=== PATIENT | female | born 1975 | race Caucasian/White ===

== ENCOUNTER 2019-07-13 10:20 | Emergency (ER) | payer OTHER, SELFPAY ==
[2019-07-13 10:24] VITALS: BP 109/58; PULSE 74; RESP 18; TEMP 36.6; O2SAT 100
--- NOTE | 2019-07-13 10:57 | ED.BACK ---
HPI - Back Pain/Injury General Chief Complaint: Back Pain/Injury <Denis Bowling PA-C - Last Filed: 07/13/19 11:06> Stated Complaint: my back is out again <Denis Bowling PA-C - Last Filed: 07/13/19 11:06> Time Seen by Provider: 07/13/19 10:27 <Denis Bowling PA-C - Last Filed: 07/13/19 11:06> Source: patient <Denis Bowling PA-C - Last Filed: 07/13/19 11:06> Mode of arrival: ambulatory <Denis Bowling PA-C - Last Filed: 07/13/19 11:06> Limitations: no limitations <TRISTIN Avelar Last Filed: 07/13/19 11:06> History of Present Illness HPI Narrative: Patient is a 44-year-old female who presents with left lower back pain noting history of chronic low back pain for the last several days worse with activity and movement denies injury or trauma patient has tried [id number] medications with minimal improvement. . Patient notes over the last several days she has had a sore throat is currently being treated for this but denies any cough shortness of breath urinary symptoms or bowel habit changes. Pain radiates into the groin and lower extremities <Denis Bowling PA-C - Last Filed: 07/13/19 11:06> Related Data Allergies/Adverse Reactions: Allergies Allergy/AdvReac Type Severity Reaction Status Date / Time prochlorperazine Allergy Unknown Cramping Verified 07/13/19 11:13 of the Muscles <Denis Bowling PA-C - Last Filed: 07/13/19 11:06> Review of Systems Review of Systems: All systems reviewed & are unremarkable except as noted in HPI and below <Denis Bowling PA-C - Last Filed: 07/13/19 11:06> [facility] Surgical History Surgical History: Surgical History (Updated 07/13/19 @ 11:02 by Denis Bowling PA-C) History of orthopedic surgery <Denis Bowling PA-C - Last Filed: 07/13/19 11:06> Family History Family History: Family History (Updated 11/04/15 @ 23:19 by DOCTOR UNKNOWN) Father Family history of diabetes mellitus in first degree relative Grandparent Family history of malignant neoplasm of cervix Family history of primary malignant neoplasm of liver Family history of heart disease in male family member before age 55 <Denis Bowling PA-C - Last Filed: 07/13/19 11:06> Social History Social History: Social History Smoking status: Heavy tobacco smoker Alcohol intake: never Gender identity (if verbalized by the patient): Female <Denis Bowling PA-C - Last Filed: 07/13/19 11:06> Exam Narrative: Exam Narrative: GENERAL: Well-appearing, well-nourished, and in no acute distress. HEAD: Normocephalic, atraumatic. EYES: PERRLA and EOMI. ENT: Nares clear, no rhinorrhea or epistaxis. Mucous membranes moist. CHEST: Clear to auscultation. No respiratory distress. No wheezes rales or rhonchi HEART: Regular rate and rhythm. No murmur heard. Normal peripheral pulses. ABDOMEN: Soft, nontender, nondistended EXTREMITIES: Normal range of motion. No edema. Tenderness in the left lower lumbar region no deformity noted SKIN: Warm, dry, no rash. NEURO: No focal deficits. Alert and oriented x3. Cranial nerves II through XII grossly intact. Normal speech and gait PSYCH: Normal mood and affect. <Denis Bowling PA-C - Last Filed: 07/13/19 11:06> Course Course Emergency Course: Patient in the room in no distress aware of case findings treatment plan and diagnosis <Denis Bowling PA-C - Last Filed: 07/13/19 11:06> Vital Signs Vital signs: Vital Signs Temperature 97.9 F 07/13/19 10:24 Pulse Rate 74 07/13/19 10:24 Respiratory Rate 18 07/13/19 10:24 Blood Pressure 109/58 L 07/13/19 10:24 Pulse Oximetry 100 07/13/19 10:24 Temperature 97.9 F 07/13/19 10:24 Pulse Rate 61 07/13/19 11:38 Respiratory Rate 17 07/13/19 11:38 Blood Pressure 105/63 07/13/19 11:38 Pulse Oximetry 100 07/13/19 11:38 <
[2019-07-13 11:25] LABS: Add Urine Microscopic? YES; Appearance Urine Clear (Clear); Bacteria Urine Trace /hpf; Bilirubin Urine Negative (Negative); Blood Urine Negative (Negative); Color Urine Yellow (Yellow); Glucose Urine UA 1+ mg/dL (Negative); Ketones Urine Trace mg/dL (Negative); Leukocyte Esterase Ur Trace LEU/UL (Negative); Mucus Urine Rare /lpf; Nitrate Urine Negative (Negative); Protein Urine 1+ mg/dL (Negative); Specific Grav Ur 1.028 (1.001-1.035); Squamous Epithelial Cell Urine Occasional /hpf (Few); WBC Urine 0-3 /hpf
[2019-07-13 11:36] VITALS: BP 105/63; PULSE 61; RESP 17; O2SAT 100
[2019-07-13 11:38] VITALS: BP 105/63; PULSE 61; RESP 17; O2SAT 100
== END 2019-07-13 11:40 | disposition home or self-care (01) ==
PROVIDERS: Emergency Medicine Emergency Medical Services; Emergency Provider General Practice
DX: M54.5 Low back pain (principal); F17.200 Nicotine dependence, unspecified, uncomplicated
CPT/HCPCS: 51701; 81001; 99283

== ENCOUNTER 2019-12-07 11:51 | Emergency (ER) | payer OTHER, SELFPAY ==
[2019-12-07 11:58] VITALS: BP 103/57; PULSE 71; RESP 16; TEMP 37.1; O2SAT 98
--- NOTE | 2019-12-07 12:42 | ED.URI ---
HPI - URI/Sore Throat General Chief Complaint: Upper Respiratory Infection Stated Complaint: sinus congestion Time Seen by Provider: 12/07/19 12:18 Source: patient and RN notes reviewed Mode of arrival: ambulatory Limitations: no limitations History of Present Illness HPI Narrative: Patient presents today with a one-week history of nasal congestion that is worse in the mornings, nasal drainage, postnasal drip, sore throat due to drainage. Denies headache, cough, fever, shortness of breath. She has been using [id number] decongestant nasal drops for 3-4 days and has had 1 dose of Claritin. She has been using the nasal drops more frequently than directed because she didn't think they were penetrating the mucus in the nose. She also reports a possible stye developing in her left lower eyelid.She is a smoker. MD elicited complaint: nasal congestion Related Data Allergies Allergy/AdvReac Type Severity Reaction Status Date / Time prochlorperazine Allergy Unknown Cramping Verified 12/07/19 11:59 of the Muscles Review of Systems Review of Systems: Narrative: CONSTITUTIONAL: Denies body aches, fever, chills, or sweats. EYES: Denies visual changes, redness, or discharge. + Left lower eyelid pain ENT: Denies otalgia. +Congestion, rhinorrhea, postnasal drip, sore throat CARDIOVASCULAR: Denies chest pain, palpitations, or edema. RESPIRATORY: Denies cough or dyspnea. GASTROINTESTINAL: Denies abdominal pain, nausea, vomiting, or diarrhea. GENITOURINARY: Denies dysuria or hematuria. SKIN: Denies rash, itching, or wounds. MUSCULOSKELETAL: Denies back pain, joint pain, or myalgia. NEUROLOGIC: Denies headache, numbness, tingling, or weakness. PSYCH: Denies depression or anxiety. [facility] Past Medical History Medical History (Updated 12/07/19 @ 13:45 by Serena Alston, NURSE RESEARCHER, ) Anxiety Depression Surgical History Surgical History (Updated 07/13/19 @ 11:02 by Denis Bowling PA-C) History of orthopedic surgery Family History Family History (Updated 11/04/15 @ 23:19 by DOCTOR UNKNOWN) Father Family history of diabetes mellitus in first degree relative Grandparent Family history of malignant neoplasm of cervix Family history of primary malignant neoplasm of liver Family history of heart disease in male family member before age 55 Social History Social History Smoking status: Heavy tobacco smoker Alcohol intake: never Gender identity (if verbalized by the patient): Female Exam Narrative: Exam Narrative: GENERAL: Well-appearing, well-nourished, and in no acute distress. HEAD: Normocephalic, atraumatic. EYES: EOMI. PERRL. No redness or drainage. Conjunctivae normal. Small pustule to inner lower left eyelid. ENT: Mucous membranes pink and moist. Nares Congested with rhinorrhea. TMs normal bilaterally. Throat mildly erythematous with clear post nasal drainage. No sinus tenderness. Uvula midline. NECK: Normal AROM. Supple. No lymphadenopathy. CHEST: No respiratory distress. Clear to auscultation. HEART: Regular rate and rhythm. No murmur appreciated. Normal peripheral pulses. ABDOMEN: Soft, nontender, nondistended, normal active bowel sounds. MUSCULOSKELETAL: No bony tenderness. EXTREMITIES: Normal range of motion. No edema. SKIN: Warm, dry, no rash. Capillary refill normal. Normal skin turgor. NEURO: No focal deficits. Alert and oriented x3. Gait steady. PSYCH: Normal affect. No signs of depression or anxiety. Course Vital Signs Vital signs: Vital Signs Temperature 98.8 F 12/07/19 11:58 Pulse Rate 71 12/07/19 11:58 Respiratory Rate 16 12/07/19 11:58 Blood Pressure 103/57 L 12/07/19 11:58 Pulse Oximetry 98 12/07/19 11:58 Temperature 98.8 F 12/07/19 11:58 Pulse Rate 71 12/07/19 11:58 Respiratory Rate 16 12/07/19 11:58 Blood Pressure 103/57 L 12/07/19 11:58 Pulse Oximetry 98 12/07/19 11:58 Review
== END 2019-12-07 12:50 | disposition home or self-care (01) ==
PROVIDERS: Emergency Provider Nurse Practitioner
DX: J30.9 Allergic rhinitis, unspecified (principal); H00.025 Hordeolum internum left lower eyelid; F17.200 Nicotine dependence, unspecified, uncomplicated; F41.9 Anxiety disorder, unspecified; F32.9 Major depressive disorder, single episode, unspecified
CPT/HCPCS: 99213; G0463

== ENCOUNTER 2020-03-08 15:16 | Emergency (ER) | payer OTHER, SELFPAY | END 2020-03-08 15:22 | disposition left against medical advice (07) | PROVIDERS: Emergency Provider Nurse Practitioner Family | DX: Z53.21 Procedure and treatment not carried out due to patient leaving prior to being seen by health care provider (principal) | CPT/HCPCS: 99199 ==

== ENCOUNTER 2020-06-20 16:42 | Emergency (ER) | payer OTHER, SELFPAY ==
--- NOTE | ~2020-06-20 | XR_ITS ---
XR chest 2V DATE: 06/20/2020 17:28 INDICATION: Cough, wheezing. TECHNIQUE: PA and lateral views COMPARISON: None FINDINGS: Normal heart size. No hilar or mediastinal enlargement. No pulmonary infiltrate or consolid ation, pleural effusion or pulmonary vascular congestion or pneumothorax. IMPRESSION: No active cardiopulmonary disease Reviewed, dictated and finalized at location A.
[2020-06-20 17:00] VITALS: BP 114/60; PULSE 64; RESP 16; TEMP 36.5; O2SAT 99
--- NOTE | 2020-06-20 17:02 | ED.URI ---
HPI - URI/Sore Throat General Chief Complaint: Upper Respiratory Infection Stated Complaint: chest cold x 1 week Time Seen by Provider: 06/20/20 17:02 Source: patient and RN notes reviewed Mode of arrival: ambulatory Limitations: no limitations History of Present Illness HPI Narrative: 45-year-old female presents to the [facility] with complaints of cough and congestion x1 week. Reports wheezing and a productive cough. Patient is a smoker Related Data Allergies Allergy/AdvReac Type Severity Reaction Status Date / Time prochlorperazine Allergy Unknown Cramping Verified 06/20/20 16:59 of the Muscles Review of Systems Review of Systems: Narrative: CONSTITUTIONAL: Denies fever, chills, or sweats. EYES: Denies visual changes, redness, or discharge. ENT: Denies rhinorrhea, congestion, sore throat, or otalgia. CARDIOVASCULAR: Denies chest pain, palpitations, or edema. RESPIRATORY: reports a productive cough and dyspnea. GASTROINTESTINAL: Denies abdominal pain, nausea, vomiting, or diarrhea. GENITOURINARY: Denies dysuria or hematuria. SKIN: Denies rash or itching. MUSCULOSKELETAL: Denies back pain, joint pain, or myalgia. NEUROLOGIC: Denies headache, numbness, or weakness. PSYCHIATRIC: Denies anxiety or depression. All other systems reviewed are negative, except as documented in HPI. PMFSH Past Medical History Medical History (Updated 06/20/20 @ 18:10 by Maricel Garcia) Anxiety Depression Surgical History Surgical History History of orthopedic surgery Family History Family History Father Family history of diabetes mellitus in first degree relative Grandparent Family history of malignant neoplasm of cervix Family history of primary malignant neoplasm of liver Family history of heart disease in male family member before age 55 Social History Social History Smoking status: Heavy tobacco smoker Alcohol intake: never Gender identity (if verbalized by the patient): Female Comments At the time of my signature, I reviewed and agree with the nursing past medical, surgical, social, and family history. There is no relevant family history pertinent to the patient complaint. Exam Narrative: Exam Narrative: GENERAL: This is a well-nourished, well-developed patient, in no apparent distress. Appears mildly ill HEAD: normocephalic, atraumatic. EYES: PERRL. Sclera clear/white. Vision is grossly intact. EARS: External ears normal, auditory canals clear and without drainage, TMs normal without perforation. Hearing grossly intact. NOSE: External nose normal with no obvious nasal discharge, nares without redness, no rhinorrhea. THROAT: Mucous membranes moist, posterior pharynx clear. NECK: Neck supple, non-tender without lymphadenopathy, masses or thyromegaly. CARDIOVASCULAR: Regular rate and rhythm without murmurs, gallops, or rubs. RESPIRATORY: wheezes and rhonchi noted throughout lung field. Positive strong cough with green productive sputum. GASTROINTESTINAL: Abdomen soft, non-tender, nondistended. SKIN: warm, intact with no suspicious lesions or rash, good texture and turgor. NEURO: awake, alert, and oriented to person, place and time. There were no obvious focal neurologic abnormalities. EXTREMITIES: No joint tenderness, effusion, or edema noted. No calf tenderness. Negative Homans sign bilaterally. BACK: Nontender without deformity. No CVA tenderness. Course Vital Signs Vital signs: Vital Signs Temperature 97.7 F 06/20/20 17:00 Pulse Rate 64 06/20/20 17:00 Respiratory Rate 16 06/20/20 17:00 Blood Pressure 114/60 06/20/20 17:00 Pulse Oximetry 99 06/20/20 17:00 Temperature 97.7 F 06/20/20 17:00 Pulse Rate 64 06/20/20 17:00 Respiratory Rate 16 06/20/20 17:00 Blood Pressure 114/60 06/20/20 17:00 Pulse Oximetry 99 06/20/20 17:00
[2020-06-20] MEDS: IPRATROPIUM BR 0.02% INH SOLN 0.5 MG/2.5 ML VIAL INHALATION (17:23)
[2020-06-20] MEDS: ALBUTEROL SULFATE NEB 2.5 MG/3 ML INH INHALATION (17:24)
[2020-06-21 18:33] LABS: SARS-CoV-2 RNA PCR Negative
== END 2020-06-20 18:14 | disposition home or self-care (01) ==
PROVIDERS: Emergency Provider Nurse Practitioner
DX: J40 Bronchitis, not specified as acute or chronic (principal); Z20.822 Contact with and (suspected) exposure to COVID-19; F17.200 Nicotine dependence, unspecified, uncomplicated
CPT/HCPCS: 71046; 87426; 99213; C9803; G0463; U0003; U0005

== ENCOUNTER 2020-06-29 17:15 | Emergency (ER) | payer OTHER, SELFPAY | END 2020-06-29 17:27 | disposition left against medical advice (07) | LOC: EXPBETH 17:17 | PROVIDERS: Emergency Provider Nurse Practitioner | DX: Z53.21 Procedure and treatment not carried out due to patient leaving prior to being seen by health care provider (principal) | CPT/HCPCS: 99199 ==

== ENCOUNTER 2020-09-06 17:42 | Emergency (ER) | payer OTHER, SELFPAY ==
--- NOTE | ~2020-09-06 | XR_ITS ---
XR chest 2V DATE: 09/06/2020 18:32 INDICATION: Cough and congestion for 4 days. Smoker. TECHNIQUE: PA and lateral views COMPARISON: 06/20/2020 PA and lateral chest FINDINGS: Normal heart size. No hilar or mediastinal enlargement. There are mild bilateral perihilar infiltrates, most likely due to mild bilateral perihilar pneumonia . No pleural effusion or pulmonary vascular congestion or pneumothorax. IMPRESSION: Mild bilateral perihilar infiltrates Reviewed, dictated and finalized at location A.
[2020-09-06 18:08] VITALS: BP 118/65; PULSE 94; RESP 16; TEMP 37.6; O2SAT 96
--- NOTE | 2020-09-06 18:10 | ED.URI ---
HPI - URI/Sore Throat General Chief Complaint: Upper Respiratory Infection Stated Complaint: cough Time Seen by Provider: 09/06/20 18:10 Source: patient and RN notes reviewed History of Present Illness HPI Narrative: Patient is a 45-year-old female who presents the urgent care with complaints of cough and chest congestion. Patient states that her daughter was sick but they went to her birthday green party on Saturday anyways and now her and her son both have the congestion and cough. Denies of any known fevers, nausea, vomiting. Patient reports of shortness of breath. States that she has been using the inhaler that she got from our facility on 06/20/2020 for bronchitis. Patient states her symptoms did improve after her antibiotics and steroids at that time but have came on fast this time . No other acute complaints. No acute distress noted. Patient aware of the plan of care. Some parts of this dictation were generated by voice recognition software and may contain typographical and/or grammatical inaccuracies. Related Data Allergies Allergy/AdvReac Type Severity Reaction Status Date / Time prochlorperazine Allergy Unknown Cramping Verified 09/06/20 18:20 of the Muscles Review of Systems Review of Systems: Narrative: CONSTITUTIONAL: Denies fever, chills, or sweats. EYES: Denies visual changes, redness, or discharge. ENT: Denies rhinorrhea, congestion, sore throat, or otalgia. CARDIOVASCULAR: Denies chest pain, palpitations, or edema. RESPIRATORY: Reports of cough, wheezing, shortness of breath and chest congestion GASTROINTESTINAL: Denies abdominal pain, nausea, vomiting, or diarrhea. GENITOURINARY: Denies dysuria or hematuria. SKIN: Denies rash or itching. MUSCULOSKELETAL: Denies back pain, joint pain, or myalgia. NEUROLOGIC: Denies headache, numbness, or weakness. All other systems reviewed are negative, except as documented in HPI. [facility] Past Medical History Medical History (Updated 09/06/20 @ 19:02 by NADINE [place]) Anxiety Depression Surgical History Surgical History History of orthopedic surgery Family History Family History Father Family history of diabetes mellitus in first degree relative Grandparent Family history of malignant neoplasm of cervix Family history of primary malignant neoplasm of liver Family history of heart disease in male family member before age 55 Social History Social History Smoking status: Heavy tobacco smoker Alcohol intake: never Gender identity (if verbalized by the patient): Female Comments At the time of my signature, I reviewed and agree with the nursing past medical, surgical, social, and family history. There is no relevant family history pertinent to the patient complaint. Exam Narrative: Exam Narrative: GENERAL: This is a well-nourished, well-developed patient, in no apparent distress. HEAD: normocephalic, atraumatic. EYES: PERRL. Sclera clear/white. Vision is grossly intact. EARS: External ears normal, auditory canals clear and without drainage, TMs normal without perforation. Hearing grossly intact. NOSE: External nose normal with no obvious nasal discharge, nares without redness, no rhinorrhea. THROAT: Mucous membranes moist, posterior pharynx clear. Mild postnasal drainage NECK: Neck supple CARDIOVASCULAR: Regular rate and rhythm without murmurs, gallops, or rubs. RESPIRATORY: Coarse throughout with inspiratory and expiratory wheezes SKIN: warm, intact with no suspicious lesions or rash, good texture and turgor. NEURO: awake, alert, and oriented to person, place and time. There were no obvious focal neurologic abnormalities. EXTREMITIES: No clubbing, cyanosis, or edema. Course Vital Signs Vital signs: Vital Signs Temperature 99.7 F H 09/06/20 18:08 Pulse Rate 94 09/06/20 18:08 Respirator
[2020-09-06] MEDS: ALBUTEROL SULFATE NEB 2.5 MG/3 ML INH INHALATION (18:53)
[2020-09-08 18:42] LABS: SARS-CoV-2 RNA PCR Negative
== END 2020-09-06 19:20 | disposition home or self-care (01) ==
PROVIDERS: Emergency Provider Nurse Practitioner Family; PCP Internal Medicine
DX: J18.9 Pneumonia, unspecified organism (principal); Z20.822 Contact with and (suspected) exposure to COVID-19; F17.200 Nicotine dependence, unspecified, uncomplicated
CPT/HCPCS: 71046; 94640; 99213; C9803; G0463; U0003; U0005

== ENCOUNTER 2023-03-23 22:35 | Emergency (ER) | payer MEDICAID, SELFPAY ==
--- NOTE | ~2023-03-23 | XR_ITS ---
EXAMINATION: XR chest 1V portable 03/23/2023 23:12 INDICATION: Chest pain PROCEDURE: AP portable chest COMPARISON: 09/06/2020 FINDINGS: The lungs are clear. The cardiomediastinal silhouette is within normal limits. There are no pleural effusions. There is no pneumothorax suspected. IMPRESSION: 1: NO ACUTE CARDIOPULMONARY DISEASE. Reviewed, dictated and finalized at location A. MBLING FABRICATOR
[2023-03-23 22:36] VITALS: BP 148/79; PULSE 93; RESP 18; TEMP 36.8; O2SAT 100
--- NOTE | 2023-03-23 22:46 | ECG_ITS ---
Measurements Intervals [place] Rate: 82 P: 77 [place]: 163 QRS: 65 QRSD: 81 T: 65 QT: 379 QTc: 444 Interpretive Statements SINUS RHYTHM MINOR ST SEGMENT ABNORMALITY BORDERLINE ECG NO PREVIOUS ECG AVAILABLE FOR COMPARISON Electronically Signed On 03-24-2023 9:05:08 ENTRY LEVEL MARKETING ASSISTANT by Jakob Lindsey M.D.
[2023-03-23] MEDS: ASPIRIN 81 MG CHEWABLE TABLET 324 MG PO (23:01)
[2023-03-23] MEDS: NITROGLYCERIN SL 0.4 MG TABLET SUBLINGUAL (23:01)
[2023-03-23 23:08] LABS: Basophils Percent Auto 0.4 % (0.2-1.2); Hematocrit 43.4 % (37.0-47.0); Hemoglobin 14.7 g/dL (12.0-15.0); Immature Granulocyte Absolute 0.01 K/mm3 (0.00-0.031); Immature Granulocyte Percent A 0.1 % (0-0.5); Lymphocytes Absolute Auto 1.09 K/mm3 (0.9-3.2); Lymphocytes Percent Auto 13.9 % (18.3-44.2); Mean Corpuscular HGB Conc 33.9 g/dl (32-36); Mean Corpuscular Hemoglobin 28.9 pg (26-34); Mean Corpuscular Volume 85.4 fl (80-100); Mean Platelet Volume 10.2 fl (7.4-10.4); Monocytes Absolute Auto 0.3 K/mm3 (0.1-0.6); Monocytes Percent Auto 3.7 % (2.6-8.5); Neutrophils Absolute Auto 6.4 K/mm3 (1.3-6.7); Neutrophils Percent Auto 81.9 % (45.5-73.1); Platelet Count Result 253 k/mm3 (150-375); Red Blood Count 5.08 M/mm3 (4.2-5.4); Red Cell Distribution Width 12.3 % (11.5-14.5); White Blood Count 7.8 K/mm3 (4.5-10.0)
[2023-03-23 23:11] VITALS: O2SAT 99
[2023-03-23 23:16] VITALS: BP 121/82; PULSE 83; RESP 18; O2SAT 98
[2023-03-23 23:19] LABS: INR 0.9; Prothrombin Time 12.6 Seconds (11.1-14.7)
[2023-03-23 23:20] LABS: Partial Thromboplastin Time 50.7 SECONDS (22.3-36.8)
[2023-03-23 23:21] LABS: Alanine Aminotransferase 28 U/L (6-35); Albumin Level 4.6 g/dL (3.5-5.1); Alkaline Phosphatase 98 U/L (38-126); Anion Gap 11 mmol/L (8-16); Aspartate Amino Transferase 33 U/L (14-36); Bilirubin,Total 0.7 mg/dL (0.2-1.3); Blood Urea Nitrogen 12 mg/dL (7-17); Calcium 9.6 mg/dL (8.4-10.2); Carbon Dioxide 27 mmol/L (22-30); Chloride 105 mmol/L (98-107); Estimated CRCL calculation 118 ml/min; Estimated Glomerular Filt Rate > 60; Glucose 116 mg/dL (65-110); Lipase 92 U/L (23-300); Potassium 3.5 mmol/L (3.4-5.0); Sodium 143 mmol/L (137-145)
[2023-03-23 23:30] LABS: Troponin I < 0.012 ng/mL (0.000-0.034)
[2023-03-23 23:31] VITALS: BP 123/77; PULSE 70; RESP 14; O2SAT 98
[2023-03-23 23:46] VITALS: BP 120/79; PULSE 76; RESP 15; O2SAT 97
--- NOTE | 2023-03-24 00:06 | ED.GENADULT ---
HPI - General Adult General Chief complaint: Chest Pain Stated complaint: epigastric pain Time Seen by Provider: 03/23/23 22:51 History of Present Illness HPI narrative: patient a 47-year-old female presents to emergency department with chief complaint of chest pain. Patient reports the last 3 days she has having discomfort in her low chest patient reports pain radiates to her back denies nausea vomiting denies diaphoresis denies radiation to her arm or into her neck. The patient reports the pain is not worsened by anything or isn't improved by anything patient reports that has been constant Related Data Allergies Allergy/AdvReac Type Severity Reaction Status Date / Time prochlorperazine Allergy Unknown Cramping Verified 03/23/23 22:42 of the Muscles Review of Systems Review of Systems: A 10 system review of systems was completed on the patient and is negative except for what is stated in the HPI. Nursing and ancillary documentation was reviewed. PMFSH Past Medical History Medical History Anxiety Depression Surgical History Surgical History History of orthopedic surgery Family History Family History Father Family history of diabetes mellitus in first degree relative Grandparent Family history of malignant neoplasm of cervix Family history of primary malignant neoplasm of liver Family history of heart disease in male family member before age 55 Social History Social History Smoking status: Heavy tobacco smoker Alcohol intake: never Gender identity (if verbalized by the patient): Female Exam Narrative: GENERAL: Well-appearing, well-nourished, and in no acute distress. HEAD: Normocephalic, atraumatic. EYES: PERRLA and EOMI. ENT: Nares clear, no rhinorrhea or epistaxis. Mucous membranes moist. NECK: Supple. CHEST: Clear to auscultation. No respiratory distress. HEART: Regular rate and rhythm. No murmur heard. Normal peripheral pulses. ABDOMEN: Soft, nontender, nondistended, normal active bowel sounds. EXTREMITIES: Normal range of motion. No edema. SKIN: Warm, dry, no rash. NEURO: No focal deficits. Alert and oriented x3. PSYCH: Normal mood and affect. Course Vital Signs Vital signs: Vital Signs Temperature 36.8 C 03/23/23 22:36 Pulse Rate 93 03/23/23 22:36 Respiratory Rate 18 03/23/23 22:36 Blood Pressure 148/79 H 03/23/23 22:36 Pulse Oximetry 100 03/23/23 22:36 Oxygen Delivery Room Air 03/23/23 22:36 Temperature 36.8 C 03/23/23 22:36 Pulse Rate 62 03/24/23 01:11 Respiratory Rate 16 03/24/23 01:11 Blood Pressure 143/78 H 03/24/23 01:11 Pulse Oximetry 98 03/24/23 01:11 Oxygen Delivery Room Air 03/23/23 23:11 Medical Decision Making MDM Narrative Medical decision making narrative: differential diagnosis includes ACS, atypical chest pain, esophageal spasm, noncardiac chest pain EKG was obtained showed no evidence of acute ischemic changes laboratory studies were obtained showed a negative troponin 0 hour and 3 hour urine did show evidence of UTI chest x-ray showed no focal infiltrate Vital Signs Vital Signs: Vital Signs Temperature 36.8 C 03/23/23 22:36 Pulse Rate 93 03/23/23 22:36 Respiratory Rate 18 03/23/23 22:36 Blood Pressure 148/79 H 03/23/23 22:36 Pulse Oximetry 100 03/23/23 22:36 Oxygen Delivery Room Air 03/23/23 22:36 Temperature 36.8 C 03/23/23 22:36 Pulse Rate 62 03/24/23 01:11 Respiratory Rate 16 03/24/23 01:11 Blood Pressure 143/78 H 03/24/23 01:11 Pulse Oximetry 98 03/24/23 01:11 Oxygen Delivery Room Air 03/23/23 23:11 Lab Data 03/23/23 23:02 03/23/23 23:02 Labs: L
[2023-03-24 00:40] LABS: Appearance Urine Cloudy (Clear); Bacteria Urine 2+ /hpf; Bilirubin Urine Negative (Negative); Blood Urine Negative (Negative); Color Urine Yellow (Yellow); Glucose Urine UA Trace mg/dL (Negative); Ketones Urine 1+ mg/dL (Negative); Leukocyte Esterase Ur 2+ LEU/UL (Negative); Nitrate Urine Negative (Negative); Non Pathogenic Casts 0-2; Protein Urine 1+ mg/dL (Negative); Specific Grav Ur 1.033 (1.001-1.035); Squamous Epithelial Cell Urine Occasional /hpf (Few); WBC Urine >100 /hpf; pH Urine 5.5 (5.0-9.0)
[2023-03-24 00:41] LABS: Add Urine Microscopic? YES
[2023-03-24 01:11] VITALS: BP 143/78; PULSE 62; RESP 16; O2SAT 98
[2023-03-24 01:46] VITALS: BP 123/74; PULSE 63; RESP 17; O2SAT 98
[2023-03-24 02:29] LABS: Troponin I < 0.012 ng/mL (0.000-0.034)
[2023-03-24 02:45] VITALS: BP 122/70; PULSE 78; RESP 18; O2SAT 98
== END 2023-03-24 02:46 | disposition home or self-care (01) ==
PROVIDERS: Emergency Provider Emergency Medicine; PCP Internal Medicine
DX: R07.89 Other chest pain (principal); N39.0 Urinary tract infection, site not specified; R94.31 Abnormal electrocardiogram [ECG] [EKG]
CPT/HCPCS: 36415; 71045; 80053; 81001; 83690; 84484; 85025; 85610; 85730; 87086; 87088; 93005; 99284; A9270

== ENCOUNTER 2023-05-28 13:42 | Emergency (ER) | payer OTHER, SELFPAY ==
[2023-05-28 13:50] VITALS: BP 138/77; PULSE 91; RESP 24; TEMP 36.9; O2SAT 93
--- NOTE | 2023-05-28 14:00 | ED.URI ---
HPI - URI/Sore Throat General Chief Complaint: Upper Respiratory Infection Stated Complaint: sob Time Seen by Provider: 05/28/23 14:01 Source: patient, RN notes reviewed and old records reviewed Mode of arrival: ambulatory Limitations: no limitations History of Present Illness HPI Narrative: 48-year-old female who presents to [facility] with shortness of breath since last evening which she noticed abruptly when climbing stairs with increased dyspnea also today. Patient reports that she had some sweating with episode of dyspnea last night. Patient reports history of cigarette smoking for 30 years quit 2 years ago and now vapes. Patient admits to some dry cough, tachypnea noted with initial SAO2 93% at triage on room air. MD elicited complaint: cough and other (shortness of breath) Pertinent past history: other (tobacco abuse 30 years now vapes) Onset (ago): day(s) (day 2) Severity: moderate Able to tolerate fluids by mouth: Yes Treatments prior to arrival: none Related Data Allergies Allergy/AdvReac Type Severity Reaction Status Date / Time prochlorperazine Allergy Unknown Cramping Verified 05/28/23 14:06 of the Muscles Review of Systems Review of Systems: CONSTITUTIONAL: Denies malaise, chills, sweats, or fever. EYES: Denies visual changes, redness, or discharge. ENT: Reports no rhinorrhea, congestion, sinus pain, otalgia and sore throat. CARDIOVASCULAR: Denies chest pain, palpitations, or edema. RESPIRATORY: Reports cough.? Positive for dyspnea. tachypnea GASTROINTESTINAL: Denies abdominal pain, nausea, vomiting, diarrhea SKIN: Denies rash or itching. MUSCULOSKELETAL: Denies myalgia. NEUROLOGIC: Denies headache. All systems reviewed & are unremarkable except as noted in HPI and below [facility] Past Medical History Medical History (Updated 05/29/23 @ 00:01 by Emma Garcia) Anxiety Depression Surgical History Surgical History (Updated 05/30/23 @ 09:10 by Terri Teixeira NP) H/O Spinal surgery History of orthopedic surgery Hx of appendectomy Previous section Family History Family History Father Family history of diabetes mellitus in first degree relative Grandparent Family history of malignant neoplasm of cervix Family history of primary malignant neoplasm of liver Family history of heart disease in male family member before age 55 Social History Social History (Updated 05/30/23 @ 09:11 by Terri Teixeira NP) Smoking packs per day: 1 Smoking cigarettes per day: 20.0 Years smoked: 30 Smoking pack-years: 30.00 Smoking status: Current every day smoker Tobacco type: e-cigarettes/vaping Additional smoking assessment comments: quit cigatette smoking 2 years ago now vapes Alcohol intake: never Substance use type: does not use Gender identity (if verbalized by the patient): Female Comments At time of signature, agree with nursing past medical, surgical, social and family history. There is no relevant family history pertinent to the presenting complaint Exam Narrative: GENERAL: Well-appearing, well-nourished, and in some acute distress. HEAD: Normocephalic EYES: PERRLA, conjunctivae clear ENT: Nares clear, turbinates edematous and erythematous, clear discharge. Mucous membranes moist. TM pearly anthony with dull light reflex bilaterally; no tragal tenderness. Oropharynx erythematous without lesions. Tonsils not enlarged and without exudate, no drooling, no hoarseness, no trismus, uvula midline. NECK: Supple. No lymphadenopathy CHEST: Diminished with scattered wheezing on auscultation, breath sounds equal.Positive for wheezing,no rhonchi, rales, or stridor. No respiratory distress, speaks in full sentences. cough noted with tachypnea SAO2 93% on room air HEART: Regular rate and rhythm. No murmur heard. SKIN: Warm, dry, no rash. NEURO: Alert and oriented x3. PSYCH: Normal
[2023-05-28] MEDS: IPRATROPIUM BR 0.02% INH SOLN 0.5 MG/2.5 ML VIAL INHALATION (14:03)
[2023-05-28] MEDS: ALBUTEROL SULFATE NEB 2.5 MG/3 ML INH INHALATION (14:03)
[2023-05-28 14:15] VITALS: O2SAT 94
== END 2023-05-28 15:03 | disposition home or self-care (01) ==
PROVIDERS: Emergency Provider Registered Nurse
DX: J40 Bronchitis, not specified as acute or chronic (principal); F17.290 Nicotine dependence, other tobacco product, uncomplicated
CPT/HCPCS: 94640; 99213; G0463

== ENCOUNTER 2023-06-29 15:36 | Emergency (ER) | payer OTHER, SELFPAY ==
[2023-06-29 15:40] VITALS: BP 111/77; PULSE 123; RESP 20; TEMP 36.3; O2SAT 96
[2023-06-29] MEDS: LIDOCAINE HCL 1% LOCAL INJ 2 ML AMPUL 10 ML INFILTRATE (16:25)
--- NOTE | 2023-06-29 17:15 | ED.GENADULT ---
HPI - General Adult General Chief complaint: Skin/Abscess/Foreign Body Stated complaint: bumps under arms Source: patient Mode of arrival: ambulatory Limitations: no limitations History of Present Illness HPI narrative: Patient presents for evaluation of painful swollen lesions to the left axillary region. She states that she has experienced symptoms for approximately 2 months. About a month ago one lesion spontaneously began to drain green liquid. Symptoms improved thereafter. She developed recurrence in her symptoms about a week ago. The lesions are increasingly painful. She denies any fever, chills, nausea, vomiting. She is not diabetic. She does use electronic cigarette. She rates her pain 8/10 severity. Related Data Allergies Allergy/AdvReac Type Severity Reaction Status Date / Time prochlorperazine Allergy Unknown Cramping Verified 06/29/23 15:54 of the Muscles Review of Systems Review of Systems: CONSTITUTIONAL: Denies fever, chills, or sweats. EYES: Denies visual changes, redness, or discharge. ENT: Denies rhinorrhea, congestion, sore throat, or otalgia. CARDIOVASCULAR: Denies chest pain, palpitations, or edema. RESPIRATORY: Denies cough or dyspnea. GASTROINTESTINAL: Denies abdominal pain, nausea, vomiting, or diarrhea. GENITOURINARY: Denies dysuria or hematuria. SKIN: Reports painful swollen lesions to the left axillary region. MUSCULOSKELETAL: Denies back pain, joint pain, or myalgia. NEUROLOGIC: Denies headache, numbness, dizziness, or weakness. PSYCHIATRIC: Denies anxiety or depression. [facility] Past Medical History Medical History Abscess Anxiety Depression Surgical History Surgical History H/O Spinal surgery History of orthopedic surgery Hx of appendectomy Previous section Family History Family History Father Family history of diabetes mellitus in first degree relative Grandparent Family history of malignant neoplasm of cervix Family history of primary malignant neoplasm of liver Family history of heart disease in male family member before age 55 Social History Social History Smoking packs per day: 1 Smoking cigarettes per day: 20.0 Years smoked: 30 Smoking pack-years: 30.00 Smoking status: Current every day smoker Tobacco type: e-cigarettes/vaping Additional smoking assessment comments: quit cigatette smoking 2 years ago now vapes Alcohol intake: never Substance use type: does not use Gender identity (if verbalized by the patient): Female Spiritual care concerns: No Exam Narrative: GENERAL: Well-appearing, well-nourished, and in no acute distress. HEAD: Normocephalic, atraumatic. EYES: PERRLA and EOMI. ENT: Nares clear, no rhinorrhea or epistaxis. Mucous membranes moist. Oropharynx without tonsillar hypertrophy exudate or other lesions. Bilateral TMs pearly anthony nonbulging NECK: Supple. No adenopathy or masses. No carotid bruits or JVD CHEST: Clear to auscultation. No respiratory distress. No wheezes rales or rhonchi HEART: Regular rate and rhythm. No murmur heard. Normal peripheral pulses. ABDOMEN: Soft, nontender, nondistended, normal active bowel sounds. EXTREMITIES: Normal range of motion. No edema. SKIN: There are several raised erythematous indurated lesions to the left axillary region. The largest is 2.5 x 6 cm in size. There is a very small amount of central fluctuance in the largest lesion NEURO: No focal deficits. Alert and oriented x3. PSYCH: Normal mood and affect. Course Course Emergency Course: This is a 48-year-old female who presented for evaluation of painful swollen lesions to the left axillary region. Initially I thought this was hidradenitis suppurativa, although patien
== END 2023-06-29 16:58 | disposition home or self-care (01) ==
PROVIDERS: Emergency Provider Nurse Practitioner
DX: L02.412 Cutaneous abscess of left axilla (principal); B95.62 Methicillin resistant Staphylococcus aureus infection as the cause of diseases classified elsewhere; F17.290 Nicotine dependence, other tobacco product, uncomplicated
CPT/HCPCS: 10061; 87070; 87075; 87147; 87181; 87205; 99213; G0463

== ENCOUNTER 2023-11-15 16:25 | Emergency (ER) | payer OTHER, SELFPAY ==
--- NOTE | 2023-11-15 16:34 | ED.FEMALEGU ---
HPI - Female Genitourinary General Chief complaint: Urogenital-Female Stated complaint: Urinary Problem Time Seen by Provider: 11/15/23 16:42 Source: patient and RN notes reviewed Mode of arrival: ambulatory Limitations: no limitations History of Present Illness HPI Narrative: 48 y/o female presented for c/o burning after urination for about one week. Endorses frequency and urgency. Took Azo for symptoms. Denies hematuria, nausea, vomiting, abdominal pain, flank pain, constipation, diarrhea, fevers or chills. Related Data Allergies Allergy/AdvReac Type Severity Reaction Status Date / Time prochlorperazine Allergy Unknown Cramping Verified 06/29/23 15:54 of the Muscles Review of Systems Review of Systems: CONSTITUTIONAL: Denies body aches, fever, chills, or sweats. CARDIOVASCULAR: Denies chest pain, palpitations, or edema. RESPIRATORY: Denies cough or dyspnea. GASTROINTESTINAL: Denies abdominal pain, nausea, vomiting, or diarrhea. GENITOURINARY: Reports dysuria, frequency, urgency, denies hematuria, flank pain SKIN: Denies rash, itching, or wounds. MUSCULOSKELETAL: Denies back pain or myalgia. [facility] Past Medical History Medical History Abscess Anxiety Depression Surgical History Surgical History H/O Spinal surgery History of orthopedic surgery Hx of appendectomy Previous section Family History Family History Father Family history of diabetes mellitus in first degree relative Grandparent Family history of malignant neoplasm of cervix Family history of primary malignant neoplasm of liver Family history of heart disease in male family member before age 55 Social History Social History Smoking packs per day: 1 Smoking cigarettes per day: 20.0 Years smoked: 30 Smoking pack-years: 30.00 Smoking status: Current every day smoker Tobacco type: e-cigarettes/vaping Additional smoking assessment comments: quit cigatette smoking 2 years ago now vapes Alcohol intake: never Substance use type: does not use Gender identity (if verbalized by the patient): Female Spiritual care concerns: No Comments At time of signature, I have reviewed and agree with nursing past medical, surgical, social and family history unless otherwise noted. Please see nursing chart for further information. There is no relevant family history pertinent to the presenting complaint Exam Narrative: GENERAL: Well-appearing and in no acute distress. HEAD: Normocephalic EYES: EOMI. . ENT: Mucous membranes pink and moist. NECK: Normal AROM. Supple. CHEST: No respiratory distress. Clear to auscultation. HEART: Regular rate and rhythm. ABDOMEN: Soft, nontender, nondistended, normal active bowel sounds. No CVA tenderness MUSCULOSKELETAL: No bony tenderness. SKIN: Warm, dry, no rash. NEURO: No focal deficits. Alert and oriented x3. Gait steady. PSYCH: Normal affect. No signs of depression or anxiety. Course Course Emergency Course: Patient is aware of diagnosis, understands and agrees to treatment plan. Anticipatory guidance given. Patient agrees to follow-up as directed and is aware of reasons to seek care at the emergency department. Portions of this record may have been created with voice recognition software Level of Care: Express Care Visit Vital Signs Vital signs: Vital Signs Temperature 97 F L 11/15/23 16:37 Pulse Rate 77 11/15/23 16:37 Respiratory Rate 16 11/15/23 16:37 Blood Pressure 117/70 11/15/23 16:37 Pulse Oximetry 97 11/15/23 16:37 Oxygen Delivery Room Air 11/15/23 16:37 Temperature 97 F L 11/15/23 16:37 Pulse Rate 77 11/15/23 16:37 Respiratory Rate 16 11/15/23 16:37 Blood Pressure 117/70 11/15/23 16:37 Pulse Oxi
[2023-11-15 16:37] VITALS: BP 117/70; PULSE 77; RESP 16; TEMP 36.1; O2SAT 97
[2023-11-15 16:42] LABS: EDUAAPPEAR Clear; EDUABILI Negative; EDUABLOOD 1+; EDUACOLOR1 Bright; EDUAGLUCOSE Negative; EDUAKETONE Trace; EDUALEUKO 2+; EDUANITRATE Positive; EDUAPROTEIN Trace; EDUAUROBILI 0.2
== END 2023-11-15 16:55 | disposition home or self-care (01) ==
PROVIDERS: Emergency Provider Nurse Practitioner Family
DX: N39.0 Urinary tract infection, site not specified (principal); F17.290 Nicotine dependence, other tobacco product, uncomplicated
CPT/HCPCS: 81003; 87086; 87088; 99213; G0463

== ENCOUNTER 2024-01-17 23:11 | Emergency (ER) | payer OTHER, SELFPAY ==
--- NOTE | ~2024-01-17 | XR_ITS ---
EXAMINATION: XR chest 1V portable DATE: 01/18/2024 00:33 INDICATION: Chest pain. TECHNIQUE: A single frontal view of the chest was obtained. COMPARISON: Chest single view 03/23/2023 FINDINGS: There is no pneumonia, pleural effusion, or pneumothorax. The heart size is normal. IMPRESSION: 1. No acute cardiopulmonary disease. Reviewed, dictated and finalized at location A.
[2024-01-17 23:12] VITALS: BP 130/78; PULSE 66; RESP 17; TEMP 36.6; O2SAT 98
--- NOTE | 2024-01-17 23:16 | ECG_ITS ---
Test Date: 2024-01-17 23:25:12 Measurements Intervals [place] Rate: 66 P: 70 NH: 163 QRS: 77 QRSD: 97 T: 49 QT: 433 QTc: 456 Interpretive Statements SINUS RHYTHM WITH OCCASIONAL VENTRICULAR PREMATURE COMPLEXES MODERATE ST DEPRESSION [0.05+ mV ST DEPRESSION] No previous ECG available for comparison Electronically Signed On 01-18-2024 08:33:04 CDT by Hernando Sierra M.D.
[2024-01-17 23:40] LABS: Basophils Percent Auto 0.4 % (0.2-1.2); Eosinophils Absolute Auto 0.3 K/mm3 (0-0.3); Eosinophils Percent Auto 3.4 % (0-4.4); Hematocrit 39.5 % (37.0-47.0); Hemoglobin 13.3 g/dL (12.0-15.0); Immature Granulocyte Absolute 0.03 K/mm3 (0.00-0.031); Immature Granulocyte Percent A 0.3 % (0-0.5); Lymphocytes Absolute Auto 1.63 K/mm3 (0.9-3.2); Lymphocytes Percent Auto 17.1 % (18.3-44.2); Mean Corpuscular HGB Conc 33.7 g/dl (32-36); Mean Corpuscular Volume 86.2 fl (80-100); Mean Platelet Volume 10.2 fl (7.4-10.4); Monocytes Absolute Auto 0.5 K/mm3 (0.1-0.6); Monocytes Percent Auto 4.7 % (2.6-8.5); Neutrophils Absolute Auto 7.1 K/mm3 (1.3-6.7); Neutrophils Percent Auto 74.1 % (45.5-73.1); Platelet Count Result 227 k/mm3 (150-375); Red Blood Count 4.58 M/mm3 (4.2-5.4); Red Cell Distribution Width 13.2 % (11.5-14.5); White Blood Count 9.5 K/mm3 (4.5-10.0)
[2024-01-17] MEDS: LACTATED RINGERS 1,000 ML 999 ML IV CONT (23:46)
[2024-01-17] MEDS: ONDANSETRON INJ 4 MG/2 ML VIAL IV PUSH (23:46)
[2024-01-17 23:51] LABS: INR 0.9; Prothrombin Time 13.1 Seconds (11.1-14.7)
--- NOTE | 2024-01-17 23:51 | ED.CHESTPAIN ---
HPI - Chest Pain General Chief Complaint: Chest Pain Stated Complaint: CHEST PAIN, PALE, DIAPHORETIC Time Seen by Provider: 01/17/24 23:14 History of Present Illness HPI narrative: 48-year-old female presenting to the emergency department via EMS for concerns of sudden onset chest pain. Onset was 30 minutes prior to arrival to the ED. Patient was cool clammy and diaphoretic and was nauseous upon arrival of EMS. They administered nitro and aspirin which alleviated some of her symptoms. She describes the pain as a crushing chest pain. Patient did have 2 episodes of emesis and round within relief of her symptoms. On initial presentation to the ED she is calm, cooperative and has no symptoms, resolution for chest pain nausea and discomfort. She is no longer diaphoretic and has normal reassuring vitals. No history of cardiac disease, angina, unstable angina or signs of trauma. She was otherwise in her normal state of health and denies any symptoms at this time. Related Data Allergies Allergy/AdvReac Type Severity Reaction Status Date / Time prochlorperazine Allergy Unknown Cramping Verified 06/29/23 15:54 of the Muscles Review of Systems Review of Systems: As reviewed above in HPI [facility] Past Medical History Medical History Abscess Anxiety Depression Surgical History Surgical History H/O Spinal surgery History of orthopedic surgery Hx of appendectomy Previous section Family History Family History Father Family history of diabetes mellitus in first degree relative Grandparent Family history of malignant neoplasm of cervix Family history of primary malignant neoplasm of liver Family history of heart disease in male family member before age 55 Social History Social History Smoking packs per day: 1 Smoking cigarettes per day: 20.0 Years smoked: 30 Smoking pack-years: 30.00 Smoking status: Current every day smoker Tobacco type: e-cigarettes/vaping Additional smoking assessment comments: quit cigatette smoking 2 years ago now vapes Alcohol intake: never Substance use type: does not use Gender identity (if verbalized by the patient): Female Spiritual care concerns: No Exam Narrative: GENERAL: [Well-appearing, well-nourished, and in no acute distress.] HEAD: [Normocephalic, atraumatic.] EYES: [PERRLA and EOMI.] ENT: Nares clear, no rhinorrhea or epistaxis. Mucous membranes moist. NECK: Supple. CHEST: [Clear to auscultation. No respiratory distress.] HEART: [Regular rate and rhythm]. No murmur heard. [Normal peripheral pulses.] ABDOMEN: [Soft, nondistended], [nontender], [No rigidity or guarding] EXTREMITIES: Normal range of motion. [No edema.] SKIN: Warm, dry, no rash. NEURO: [No focal deficits]. Alert and oriented [x3.] PSYCH: [Normal mood and affect.] Course Vital Signs Vital signs: Vital Signs Temperature 36.6 C 01/17/24 23:12 Pulse Rate 66 01/17/24 23:12 Respiratory Rate 17 01/17/24 23:12 Blood Pressure 130/78 01/17/24 23:12 Pulse Oximetry 98 01/17/24 23:12 Oxygen Delivery Room Air 01/17/24 23:12 Temperature 36.6 C 01/17/24 23:12 Pulse Rate 63 01/18/24 02:00 Respiratory Rate 20 01/18/24 02:00 Blood Pressure 124/82 01/18/24 02:00 Pulse Oximetry 100 01/18/24 02:00 Oxygen Delivery Room Air 01/18/24 01:59 MDM - Chest Pain MDM Narrative Medical decision making narrative: 48-year-old female presenting via EMS for concerns of chest pain that was onset 30 minutes prior to arrival to the ED. EMS reports notes that she was diaphoretic and nauseous and vomited twice and route but had response to Zofran and nitro. Presently she has no symptoms whatsoever appears quinten
[2024-01-17 23:52] LABS: Partial Thromboplastin Time 45.5 Seconds (22.3-36.8)
[2024-01-17 23:57] LABS: Alanine Aminotransferase 30 U/L (6-35); Albumin Level 4.3 g/dL (3.5-5.1); Alkaline Phosphatase 89 U/L (38-126); Anion Gap 8 mmol/L (4-12); Aspartate Amino Transferase 63 U/L (14-36); Bilirubin,Total 0.5 mg/dL (0.2-1.3); Blood Urea Nitrogen 12 mg/dL (7-17); Calcium 8.9 mg/dL (8.4-10.2); Carbon Dioxide 29 mmol/L (22-30); Chloride 105 mmol/L (98-107); Estimated CRCL calculation 86 ml/min; Estimated Glomerular Filt Rate > 60; Glucose 118 mg/dL (65-110); Potassium 4.1 mmol/L (3.4-5.0); Sodium 142 mmol/L (137-145)
[2024-01-18 00:03] LABS: Troponin I < 0.012 ng/mL (0.000-0.034)
[2024-01-18 00:18] LABS: Lipase 11479 U/L (23-300)
[2024-01-18 01:59] VITALS: O2SAT 99
[2024-01-18 02:00] VITALS: BP 124/82; PULSE 63; RESP 20; O2SAT 100
[2024-01-18 02:33] LABS: Troponin I < 0.012 ng/mL (0.000-0.034)
== END 2024-01-18 04:19 | disposition home or self-care (01) ==
PROVIDERS: Emergency Provider Student in an Organized Health Care Education/Training Program
DX: K85.90 Acute pancreatitis without necrosis or infection, unspecified (principal); F41.8 Other specified anxiety disorders; F17.290 Nicotine dependence, other tobacco product, uncomplicated
CPT/HCPCS: 36415; 71045; 80053; 83690; 84484; 85025; 85610; 85730; 93005; 96361; 96374; 99284; J2405; J7120

== ENCOUNTER 2024-01-28 15:32 | Emergency (ER) | payer OTHER, SELFPAY ==
[2024-01-28 15:37] VITALS: BP 150/74; PULSE 73; RESP 16; TEMP 36.6; O2SAT 99
--- NOTE | 2024-01-28 15:54 | ED.URI ---
HPI - URI/Sore Throat General Chief Complaint: Upper Respiratory Infection Stated Complaint: Congestion Time Seen by Provider: 01/28/24 15:50 Source: patient, RN notes reviewed and old records reviewed Mode of arrival: ambulatory Limitations: no limitations History of Present Illness HPI Narrative: 48 year old female who presents to [facility] with complaints of nasal congestion stuffy nose, nasal burning for one week duration. Patient reports that she has run out of Flonasse. Patient reports no known fevers chills or body aches denies any sore throat MD elicited complaint: rhinorrhea, nasal congestion and sinus pain (burning and pressure) Onset (ago): week(s) (1) Severity: moderate Able to tolerate fluids by mouth: Yes Treatments prior to arrival: ibuprofen and other (flonase till she ran out) Related Data Allergies Allergy/AdvReac Type Severity Reaction Status Date / Time prochlorperazine Allergy Unknown Cramping Verified 06/29/23 15:54 of the Muscles Review of Systems Review of Systems: CONSTITUTIONAL: Denies malaise, chills, sweats, or fever. EYES: Denies visual changes, redness, or discharge. ENT: Reports rhinorrhea, congestion, some sinus pain,no otalgia and some sore throat. CARDIOVASCULAR: Denies chest pain, palpitations, or edema. RESPIRATORY: Reports no acute cough ? Denies dyspnea. GASTROINTESTINAL: Denies abdominal pain, nausea, vomiting, diarrhea SKIN: Denies rash or itching. MUSCULOSKELETAL: Denies myalgia. NEUROLOGIC: Denies acute headache. All systems reviewed & are unremarkable except as noted in HPI and below [facility] Past Medical History Medical History Abscess Anxiety Depression Surgical History Surgical History H/O Spinal surgery History of orthopedic surgery Hx of appendectomy Previous section Family History Family History Father Family history of diabetes mellitus in first degree relative Grandparent Family history of malignant neoplasm of cervix Family history of primary malignant neoplasm of liver Family history of heart disease in male family member before age 55 Social History Social History Smoking packs per day: 1 Smoking cigarettes per day: 20.0 Years smoked: 30 Smoking pack-years: 30.00 Smoking status: Current every day smoker Tobacco type: e-cigarettes/vaping Additional smoking assessment comments: quit cigatette smoking 2 years ago now vapes Alcohol intake: never Substance use type: does not use Gender identity (if verbalized by the patient): Female Spiritual care concerns: No Comments At time of signature, agree with nursing past medical, surgical, social and family history. There is no relevant family history pertinent to the presenting complaint Exam Narrative: GENERAL: Well-appearing, well-nourished, and in no acute distress. HEAD: Normocephalic EYES: PERRLA, conjunctivae clear ENT: Nares clear, turbinates edematous and erythematous, clear to light yellow discharge sinus pressure and burning, Mucous membranes moist. TM pearly anthony with dull light reflex bilaterally; no tragal tenderness. Oropharynx erythematous without lesions. Tonsils not enlarged and without exudate, no drooling, no hoarseness, no trismus, uvula midline. NECK: Supple. No lymphadenopathy CHEST: Clear to auscultation, breath sounds equal. No wheezing, rhonchi, rales, or stridor. No respiratory distress, speaks in full sentences.no cough noted SAO2 99% on room air HEART: Regular rate and rhythm. No murmur heard. SKIN: Warm, dry, no rash. NEURO: Alert and oriented x3. PSYCH: Normal mood and affect Course Course Emergency Course: Patient is aware of diagnosis, understands and agrees to treatment p
== END 2024-01-28 16:15 | disposition home or self-care (01) ==
PROVIDERS: Emergency Provider Registered Nurse
DX: J01.90 Acute sinusitis, unspecified (principal); F17.290 Nicotine dependence, other tobacco product, uncomplicated
CPT/HCPCS: 99213; G0463

== ENCOUNTER 2024-05-14 11:49 | Emergency (ER) | payer OTHER, SELFPAY ==
--- OUTSIDE RECORDS SUMMARY | 2024-05-14 11:55 | XMS_ITS | Clinical Summary ---
Author Organization [facility] Address [address] [place] [address] Care Team Providers Care Analyst Sales Name Role Phone Unavailable Primary Care Provider Unavailabl e Source Comments [facility],non-owned Affiliates and Associated Physician Practices is amultiple site organization consisting of ambulatory clinics and hospital sitesin [place], [place], [place] and [place]. This disclosure is being madepursuant to the Care Everywhere program and may not contain all information available regarding this patient. Last updated 17.[facility] Allergies Active Allergy Reactions Criticality Noted Date Comments Prochlorperazine Myalgias 06/05/2016 Whole body contractions Medications * Be aware that medications may not be up to date on this document. Alwaysverify current medications with the patient. Medication Sig Dispensed Refills Start Date End Date Status FLUoxetine (PROZAC) 20 MG capsule Take 20 mg by mouth once daily Active HYDROcodone-acetaminop hen (NORCO) 5-325 MG tablet Take 1 Tab by mouth every 4 hours as needed for Pain 30 Tab 06/05/2016 Active oxyCODONE-acetaminophe n (PERCOCET) 5-325 MG tablet Take 1 Tab by mouth every 4 hours as needed for Pain 30 Tab 06/05/2016 Active ibuprofen (MOTRIN) 600 MG tablet Take 1 Tab by mouth every 6 hours as needed for Pain 30 Tab 1 06/05/2016 Active Social History Tobacco Use Types Packs/Day Years Used Date Smoking Tobacco: Every Day Cigarettes Smokeless Tobacco: Never Tobacco Cessation:Ready to Q uit: No; Counseling Given: No Alcohol Use Standard Drinks/Week Comments No 0 (1 standard drink = 0.6 oz pur e alcohol) Sex and Gender Information Value Date Recorded Sex Assigned at Not on file Gender Identity Not on file Sexual Orientation Not on file Last Filed Vital Signs Vital Sign Reading Time Taken Comments Blood Pressure 118/72 06/05/2016 12:06 PM [employer]YE [employer]ER Pulse 51 06/05/2016 12:06 PM DYE FEEDER Temperature 36.7 C (98 F) 06/05/2016 12:06 PM DYE FEEDER Respiratory Rate 14 06/05/2016 12:06 PM DYE FEEDER Oxygen Saturation 98% 06/05/2016 12:06 PM DYE FEEDER Inhaled Oxygen Concentration - - Weight 63.2 kg (139 lb 6.4 oz) 06/05/2016 8:11 A M DYE FEEDER Height 165.1 cm (5' 5 ) 06/05/2016 8:11 AM DYE FEEDER Body Mass Index 23.2 06/05/2016 8:11 AM DYE FEEDER Plan of Treatment Health Maintenance Due Date Last Done Comments COLOGUARD (AGES 45-75) - COL ON CA SCREENING 1973 COLON MONITORING 1973 COLONOSCOPY - COLON CA SCREENING 1973 CT COLONOGRAPHY - COLON CA SCREENING 1973 Colorectal Cancer Screening 1973 FIT - COLON CA SCREENING 1973 FLEX SIG - COLON CA SCREENING 1973 LIPID TESTING 1973 MAMMOGRAM 1973 PAP SMEAR 1973 HIV SCREENING 1988 HEPATITIS C SCREENING 05/18/1991 DTAP/TDAP/TD VACCINES (1 - Tdap) 1992 HEPATITIS B VACCINE (1 of 3 - 19+ 3-dose series) 1992 PNEUMOCOCCAL VACCINE 50+ (1 of 2 - PCV) 1992 PNEUMOCOCCAL VACCINE (1 of 2 - PCV) 1992 ZOSTER VACCINE (1 of 2) 2023 COVID-19 VACCINE (1 - 2023-2 5 season) 2023 INFLUENZA VACCINE (#1) 2023 DEPRESSION SCREENING 04/08/2024 HIB VACCINE Aged Out No longer eligi ble based on patient's age to complete this topic HPV VACCINE Aged Out No longer eligi ble based on patient's age to complete this topic MENINGOCOCCAL (Group B) VACCINE Aged Out No longer eligible based on patient's age to complete this topic MENINGOCOCCAL VACCINE Aged Out No dustin nicole eligible based on patient's age to complete this topic
--- OUTSIDE RECORDS SUMMARY | 2024-05-14 11:55 | XMS_ITS | Clinical Summary ---
Author Organization [facility] Address [address] [place] [address] Care Team Providers Care Paper Handler Name Role Phone Ken Llamas MD Primary Care Provider [phone] Allergies Active Allergy Reactions Criticality Noted Date Comments Prochlorperazine Dystonia 04/19/2019 Medications No known medications Family History Medical History Relation Comments Hypertension Father Relation Status Comments Father Social History Tobacco Use Types Packs/Day Years Used Date Smoking Tobacco: Every Day Cigarettes Smokeless Tobacco: Never Alcohol Use Standard Drinks/Week Comments No 0 (1 standard drink = 0.6 oz pur e alcohol) AUDIT-C Answer Date Recorded Frequency of Alcohol Consumption Never 04/19/2019 Average Number of Drinks Not on file 020 Frequency of Binge Drinking Not on file 04/08 Comments No Sex and Gender Information Value Date Recorded Sex Assigned at Not on file Legal Sex Female 8:38 AM WORKING MANAGER Gender Identity Not on file Sexual Orientation Not on file Last Filed Vital Signs Vital Sign Reading Time Taken Comments Blood Pressure 129/81 04/19/2019 10:19 AM WORKING MANAGER Pulse 99 04/19/2019 10:19 AM WORKING MANAGER Temperature 36.7 C (98.1 F) 04/19/2019 8:51 AM WORKING MANAGER Respiratory Rate 18 04/19/2019 10:19 AM WORKING MANAGER Oxygen Saturation 99% 04/19/2019 10:19 AM WORKING MANAGER Inhaled Oxygen Concentration - - Weight 63.5 kg (140 lb) 04/19/2019 8:51 AM WORKING MANAGER Height 165.1 cm (5' 5 ) 04/19/2019 8:51 AM WORKING MANAGER Body Mass Index 23.3 04/19/2019 8:51 AM WORKING MANAGER Plan of Treatment Health Maintenance Due Date Last Done Comments Cervical Cancer Screening Pa p Smear (Age 30 to 64) Every 3 Years 1973 Colorectal Cancer Screening Colonoscopy (10 Years) 1973 Annual Physical 1976 Pneumococcal Vaccine: Pediat rics (0 to 5 Years) and At-Risk Patients (6 to 64 Years) (1 of 2 - PCV) 1979 Hepatitis C 1991 DTaP, Tdap and Td Vaccines ( 1 - Tdap) 1992 Hepatitis B Vaccines (1 of 3 - 19+ 3-dose series) 1992 Cervical Cancer Screening Pa p with HPV Testing (Age 30 to 64) Every 5 Years 2003 Cervical Cancer Screening with HPV 2003 Mammogram Screening 2013 Zoster Vaccines (1 of 2) 2023 COVID-19 Vaccine (1 - 2023-2 5 season) 2023 Influenza Adult (#1) 2024 Meningococcal B Vaccine Aged Out No l onger eligible based on patient's age to complete this topic Meningococcal Vaccine Aged Out No dustin nicole eligible based on patient's age to complete this topic RSV Immunizations Under 20 Months Aged Out No longer eligible based on patient's age to complete this topic Insurance Care Teams Paper Handler Relationship Specialty Start Date End Date Ken Llamas MD PCP - General INTERNAL MEDICINE 04/19/19
--- OUTSIDE RECORDS SUMMARY | 2024-05-14 11:55 | XMS_ITS | Referral Summary ---
Author Organization [facility] Address [address] [place] [address] Care Team Providers Care Ore Fielder Name Role Phone Sisi Magallon RN Unavailable UnavailMarley Millan RN Unavailable Unavailab Nayely Rodriguez NP Primary Care Provider [phone] Opal Montanez Unavailable Unavailable Allergies Active Allergy Reactions Criticality Noted Date Comments Prochlorperazine Muscle pain Medium Medications ALPRAZolam (XANAX) 0.5 mg tablet Take 0.5 mg by mouth. 7 Active dextroamphetamine-a mphetamine (ADDERALL) 20 mg tablet Take 20 mg by mouth. 7 Active ondansetron ODT (ZOFRAN-ODT) 4 mg disintegrating tablet Dissolve 1 tablet for mild to moderate nausea or vomiting or 2 tablets for severe nausea or vomiting oral twice a day as needed. 15 tablet 7 Active sertraline (ZOLOFT) 50 mg tablet TK 1 T PO D 1 8 Active venlafaxine XR (EFFEXOR-XR) 37.5 mg 24 hr capsule Take 37.5 mg by mouth daily 9 Active HYDROcodone-acetami nophen (NORCO) 10-325 mg per tabletIndications:C hronic bilateral low back pain without sciatica,Lumbar post-laminectomy syndrome Take 1 tablet by mouth 5 (five) times a day 150 tablet 9 Active HYDROcodone-acetami nophen (NORCO) 10-325 mg per tabletIndications:L umbar post-laminectomy syndrome,Chronic bilateral low back pain without sciatica Take 1 tablet by mouth 5 (five) times a day 150 tablet 9 Active HYDROcodone-acetami nophen (NORCO) 10-325 mg per tabletIndications:L umbar post-laminectomy syndrome,Chronic bilateral low back pain without sciatica Take 1 tablet by mouth 5 (five) times a day 150 tablet 9 Active naproxen (NAPROSYN) 500 mg tablet Take 1 tablet (500 mg total) by mouth 2 (two) times a day with meals 30 tablet 0 Active ondansetron (ZOFRAN) 4 mg tablet Take 1 tablet (4 mg total) by mouth every 6 (six) hours 12 tablet 0 Active cloNIDine (CATAPRES) 0.2 mg tablet Take 0.25 tablets (0.05 mg total) by mouth 2 (two) times a day for 7 days 4 tablet 0 Active ondansetron ODT (ZOFRAN-ODT) 4 mg disintegrating tablet Take 1 tablet (4 mg total) by mouth every 8 (eight) hours as needed for nausea or vomiting 20 tablet 3 Active naproxen (NAPROSYN) 500 mg tablet Take 1 tablet (500 mg total) by mouth 2 (two) times a day with meals 30 tablet 4 Active methocarbamoL (ROBAXIN) 500 mg tablet Take 1 tablet (500 mg total) by mouth 2 (two) times a day 20 tablet 4 Active Active Problems Problem Noted Date Diagnosed Date Opioid withdrawal 07/27/2019 Lumbar post-laminectomy syndrome-S/P discectomy 03/26/2018 Fibromyalgia 03/26/2018 Chronic bilateral low back pain without sciatica 12/30/2017 Knee pain 06/24/2015 Fracture of phalanx of toe 04/19/2015 Open wound of ankle 12/27/2014 Gestational diabetes mellitus (GDM) 07/08/2012 Overview (07/12/2016): Gestational diabetes Depression 04/16/2012 Overview (07/11/2016): Depression Attention deficit disorder 04/16/2012 Overview (07/11/2016): ADHD (attention deficit hyperactivity disorder) Pleurisy 04/16/2012 Overview (07/12/2016): Pleurisy Anxiety 04/16/2012 Overview (07/13/2016): Anxiety Social History Tobacco Use Types Packs/Day Years Used Date Smoking Tobacco: Every Day Cigarettes Smokeless Tobacco: Never Alcohol Use Standard Drinks/Week Comments No 0 (1 standard drink = 0.6 oz pur e alcohol) PHQ-2 Answer Date Recorded PHQ-2 Score 0 11/29/2018 Personal Safety Answer Date Recorded Have you ever been in or are you currently in a harmful physical or emotional relationship or is someone making you feel afraid or unsafe? Denies 07/22/2023 Comments No Sex and Gender Information Value Date Recorded Sex Assigned at Not on file Legal Sex Female 11:49 PM CORK INSULATION INSTALLER Gender Identity Not on file Sexual Orientation Not on file Last Filed Vital Signs Vital Sign Reading Time Taken Comments Blood Pressure 114/64 07/22/2023 3:41 PM CDT Pulse 103 07/22/2023 3:41 PM CDT Temperature 36.3 C (97.3 F) 07/22/2023 3:41 PM CDT Respiratory Rate 16 07/22/2023 3:41 PM CDT Oxygen Saturation 94% 07/22/2023 3:41 PM CDT Inhaled Oxygen Concentration - - Weight 81.6 kg (180 lb) 07/22/2023 3:41 PM CDT Height 165.1 cm (5' 5 ) 07/22/2023 3:41 PM CDT Body Mass Index 29.95 07/22/2023 3:41 PM CDT Plan of Treatment Not on file Goals Goal Patient Goal Type Associated Problems Recent Progress Patient-Stated? Author BH-Pain Behavioral Health On track( 018 12:56 PM CDT) No Sisi Magallon, RN Note: Pt will describe how unrelieved pain will be managed. Procedures Procedure Name Priority Date/Time Associated Diagnosis Comments EGFR STAT 04/06/2023 10:52 AM CORK INSULATION INSTALLER from Last 3 Months or Most Recently Relevant to Health Maintenance Results * eGFR (04/06/2023 10:52 AM CORK INSULATION INSTALLER) eGFR 98 mL/min/1. 73 m2 GONZALEZ JOSE (TAYLOR) Comment: Interpretive Data Reference Interval Normal >/= 90 mL/min/1.73m2 Mildly decreased* 60 - 89 mL/min/1.73m2 Mildly to moderately decreased 45 - 59 mL/min/1.73m2 Moderately to severely decreased 30 - 44 mL/min/1.73m2 Severely decreased 15 - 29 mL/min/1.73m2 Kidney Failure < 15 mL/min/1.73m2 *Relative to young adult level Estimated glomerular filtration rate is determined by the 2020 CKD-EPI equation recommended by the National Kidney Foundation (A Unifying Approach to GFR Estimation: Recommendations of the NKF-ASK Task Force on Reassessing the Inclusion of Race in Diagnosing Kidney Disease, JASN 2020). The CKD-EPI equation should not be used for patients with unstable renal function and has not been validated in children and those over 70. Current interpretive data was last reviewed 2021. Blood 04/06/2023 10:5 2 AM CORK INSULATION INSTALLER 04/06/2023 10:55 AM CORK INSULATION INSTALLER us Milind Ross MD LAB BLOOD ORDERABLE S Final Result GONZALEZ GARCIA (TAYLOR) [address] [facility] Department [place] [address] from Last 3 Months or Most Recently Relevant to Health Maintenance Insurance [facility] Care Teams Ore Fielder Relationship Specialty Start Date End Date Nayely Earl NP PCP - General 06/13/19 Sisi Magallon, RN Registered Nurse 03/19/17 Marley Simon, MICHELE Registered Nurse Pain Management 12/30/17 pOal Montanez Quality Assurance Intern Addiction Medicine 03/29/20
--- OUTSIDE RECORDS SUMMARY | 2024-05-14 11:55 | XMS_ITS | Referral Summary ---
Author Organization [facility] Address [address] [place] [address] Care Team Providers Care Bank Clerk Name Role Phone Unavailable Primary Care Provider Unavailabl e Source Comments [facility],non-owned Affiliates and Associated Physician Practices is amultiple site organization consisting of ambulatory clinics and hospital sitesin [place], [place], [place] and [place]. This disclosure is being madepursuant to the Care Everywhere program and may not contain all information available regarding this patient. Last updated 17.[facility] Allergies Active Allergy Reactions Criticality Noted Date [...] Comments Blood Pressure 118/72 06/05/2016 12:06 PM FUGITIVE DETECTIVE Pulse 51 06/05/2016 12:06 PM FUGITIVE DETECTIVE Temperature 36.7 C (98 F) 06/05/2016 12:06 PM FUGITIVE DETECTIVE Respiratory Rate 14 06/05/2016 12:06 PM FUGITIVE DETECTIVE Oxygen Saturation 98% 06/05/2016 12:06 PM FUGITIVE DETECTIVE Inhaled Oxygen Concentration - - Weight 63.2 kg (139 lb 6.4 oz) 06/05/2016 8:11 A M FUGITIVE DETECTIVE Height 165.1 cm (5' 5 ) 06/05/2016 8:11 AM FUGITIVE DETECTIVE Body Mass Index 23.2 06/05/2016 8:11 AM FUGITIVE DETECTIVE Functional Status Functional Status Response Date of Assess ment Is person deaf or have serious hearing difficult y? No 06/05/2016 Is person blind or have serious difficulty seein g? No 06/05/2016 Does person have serious dif ficulty walking/climbing stairs? No 06/05/2016 Does person have difficulty dressing/bathing? No 06/05/2016 Does person have difficulty doing errands alone? No 06/05/2016 Cognitive Status Response Date of Assessm ent Does person have difficulty concentrating/remembering/making decisions? No 06/05/2016 Plan of Treatment Not on file
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
--- OUTSIDE RECORDS SUMMARY | 2024-05-14 11:55 | XMS_ITS | Patient Health Summary ---
Author Organization [facility] Address [address] [place] [address] Care Team Providers Care Informatics Coordinator Name Role Phone Unavailable Primary Care Provider Unavailabl e Note from [facility],non-owned Affiliates and Associated Physician Practices is amultiple site organization consisting of ambulatory clinics and hospital sitesin [place], [place], [place] and [place]. This disclosure is being madepursuant to the Care Everywhere program and may not contain all information available regarding this patient. Last updated 17.[facility] Allergies * Prochlorperazine(Myalgias) Medications * Be aware that medications may not be up to date on this document. Alwaysverify current medications with the patient. * FLUoxetine (PROZAC) 20 MG capsule Take 20 mg by mouth once daily * HYDROcodone-acetaminophen (NORCO) 5-325 MG tablet(Started 06/05/2016) Take 1 Tab by mouth every 4 hours as needed for Pain * oxyCODONE-acetaminophen (PERCOCET) 5-325 MG tablet(Started 06/05/2016) Take 1 Tab by mouth every 4 hours as needed for Pain * ibuprofen (MOTRIN) 600 MG tablet(Started 06/05/2016) Take 1 Tab by mouth every 6 hours as needed for Pain 1 refill remaining Social History Tobacco Use Types Packs/Day Years [...] Comments Blood Pressure 118/72 06/05/2016 12:06 PM CAREERS ADVISER Pulse 51 06/05/2016 12:06 PM CAREERS ADVISER Temperature 36.7 C (98 F) 06/05/2016 12:06 PM CAREERS ADVISER Respiratory Rate 14 06/05/2016 12:06 PM CAREERS ADVISER Oxygen Saturation 98% 06/05/2016 12:06 PM CAREERS ADVISER Inhaled Oxygen Concentration - - Weight 63.2 kg (139 lb 6.4 oz) 06/05/2016 8:11 A M CAREERS ADVISER Height 165.1 cm (5' 5 ) 06/05/2016 8:11 AM CAREERS ADVISER Body Mass Index 23.2 06/05/2016 8:11 AM CAREERS ADVISER Procedures * PATHOLOGY TISSUE EXAM (STL)(Performed 06/05/2016) Performed for Uterine leiomyoma, unspecified location * HYSTEROSCOPY ABLATION WITH NOVASURE(Performed 06/05/2016) * HCG URINE QUALITATIVE - POINT OF CARE(Performed 06/05/2016) Results * GROSS + MICRO EXAM (STL) (06/05/2016 11:09 AM CAREERS ADVISER) Case Report Surgical Pathology Report Case: [id number] Authorizing Provider: Sampson Vogt MD Collected: 06/05/2016 11:09 AM Ordering Location: [facility] Received: 06/05/2016 02:23 PM Pathologist: Milind Chino MD Specimen: Endometrium Curettings 06/07/2016 2:55 PM CAREERS ADVISER [facility] Final Diagnosis 1. Endometrial curettings: -- Secretory endometrium Antolin 06/07/2016 2:55 PM [facility] Gross Description Received in formalin in a container labeled Sena Mi, endometrium curettings. The container holds a white cloth suction cup containing multiple pink-mueller tissue fragments measuring 5 x 3 x 0.4 cm in aggregate. The specimen is placed in a T-bag and entirely submitted in cassette A1 and A2. JACOB/alexus 06/07/2016 2:55 PM CAREERS ADVISER [facility] Microscopic Description The endometrial curettings show fragments of an early secretory endometrium of approximate post-ovulatory day 4 or 5. Clinical correlation is recommended. No hyperplasia is seen. /karen 06/07/2016 2:55 PM CAREERS ADVISER [facility] Disclaimer All histochemical and/or immunohistochemical results are interpreted with controls that demonstrate appropriate staining reactions before reporting results. Note on use of immunocytochemistry reagents: This test was developed and its performance characteristic determined by [facility], Department of Laboratory Medicine. It has not been cleared or approved by the U.S. Food and Drug Administration (FDA). The FDA has determined that such clearance or approval is not necessary. The test is used for clinical purpose. It should not be regarded as investigational or for research. This laboratory is certified to perform high complexity testing. 06/07/2016 2:55 PM CAREERS ADVISER [facility] Embedded Images 06/07/2016 2:55 PM CAREERS ADVISER [facility] Pathology/Cytolo gy SPECIMEN FROM ENDOMETRIUM OBTAINED BY CURETTAGE / Unknown 06/05/2016 11:09 AM CAREERS ADVISER 06/05/2016 2:23 PM CAREERS ADVISER Sampson Vogt MD LAB - PATHOLOGY/CYTO LOGY ORDERABLES Performing Organization Address [facility] Co de Phone Number [facility] [address] [place] [address] * HCG URINE QUALITATIVE - POINT OF CARE (IP) (06/05/2016 8:04 AM CAREERS ADVISER) HCG Qual Urine Negative Negative [facility] QC Verified Yes Yes [facility] POC T TESTING Urine URINE / Unknown 06/05/2016 8 :04 AM CAREERS ADVISER Dillan Post MD LAB - POINT OF CARE ORDERABLES Performing Organization Address [facility] de Phone Number [facility] [address] [place] [address], [facility] [phone]
--- OUTSIDE RECORDS SUMMARY | 2024-05-14 11:56 | XMS_ITS | Clinical Summary ---
Author Organization [facility] Address [address] [place] [address] Care Team Providers Care Body Mechanic Name Role Phone Sisi Magallon RN Unavailable UnavailMarley Millan RN Unavailable Unavailab Nayely Rodriguez RENOVATOR MACHINE OPERATOR Primary Care Provider [phone] Opal Montanez Unavailable Unavailable Allergies Active Allergy [...] (07/12/2016): Pleurisy Anxiety 04/16/2012 Overview (07/13/2016): Anxiety Surgical History Surgery Date Site/Laterality Comments BACK SURGERY APPENDECTOMY SECTION Medical History Medical History Date Comments Migraines Social History Tobacco Use Types Packs/Day Years [...] on file Legal Sex Female 11:49 PM AVIONICS ELECTRICAL ENGINEER Gender Identity Not on file Sexual Orientation Not on file Obstetrics History Last Filed Vital Signs Vital Sign Reading [...] 07/22/2023 3:41 PM CDT Plan of Treatment Health Maintenance Due Date Last Done Comments Albumin Creatinine Ratio, Urine 1973 Cervical Cancer Screening 1973 Colon Cancer Screening-Colonoscopy 1973 Hemoglobin A1C 1973 Hepatitis C Screening 1973 Dilated Eye Exam 1973 Foot Exam 1973 Lipid Panel 1973 Hepatitis B Screening 1991 Regular Well Visit/Exam 18-64 1991 Pneumococcal vaccine <65 (2 of 2 - PCV) 12/13/2017 12/13/2016 Breast Cancer Screening-Mammogram 07/19/2018 018 Depression Screening 03/26/2019 03/26/2018, 03/26/20 18 Zoster Vaccine (1 of 2) 2023 Influenza Vaccine (#1) 2023 0, 01/27/2018, 12/13/2016 eGFR 04/06/2024 04/06/2023, 04/2 , 06/13/2019, Additional history exists DTaP/Tdap/Td Vaccine (2 - Td or Tdap) 12/13/2026 12/13/2016 Goals Goal Patient Goal Type Associated Problems Recent Progress Patient-Stated? Author BH-Pain Behavioral Health On track( 018 12:56 PM CDT) Sisi Dougherty, MICHELE Note: Pt will describe how unrelieved pain will be managed. Procedures Procedure Name Priority Date/Time Associated Diagnosis Comments EGFR STAT 04/06/2023 10:52 AM AVIONICS ELECTRICAL ENGINEER from Last 3 Months or Most Recently Relevant to Health Maintenance Results * eGFR (04/06/2023 10:52 AM AVIONICS ELECTRICAL ENGINEER) eGFR 98 mL/min/1. 73 m2 GONZALEZ GARCIA (ALEX) Comment: Interpretive Data Reference Interval Normal >/= [...] reviewed 2021. Blood 04/06/2023 10:5 2 AM AVIONICS ELECTRICAL ENGINEER 04/06/2023 10:55 AM AVIONICS ELECTRICAL ENGINEER us Milind Ross MD LAB BLOOD ORDERABLE S Final Result [facility] Department of Laboratories [place] [id number] from Last 3 Months or Most Recently Relevant to Health Maintenance Insurance [facility] IDPA IDPA [facility] Care Teams Body Mechanic Relationship Specialty Start Date End Date Nayely Earl NP PCP - General 06/13/19 Sisi Magallon, RN Registered Nurse 03/19/17 Marley Simon, MICHELE Registered Nurse Pain Management 12/30/17 Opal Montanez Staff Nurse Addiction Medicine 03/29/20
--- OUTSIDE RECORDS SUMMARY | 2024-05-14 11:56 | XMS_ITS | Continuity of Care Document ---
Author Organization [facility] Address [address] [place] [address] [place] [address] Phone Care Team Providers Care Pan Devulcanizer Helper Name Role Phone Bob Sotelo MD Unavailable Unavailable Allergies, Adverse Reactions, Alerts Substance Reaction Status Criticality PROCHLORPERAZINE MALEATE Active No Information PROCHLORPERAZINE EDISYLATE Active N o Information Medications Medication Instructions Dosage Effective Dates (start - stop) Status Comments Prozac 20 mg capsule take 1 Capsule (20MG) by oral route every day in the morning 20 MG - Active Xanax 0.5 mg tablet take 1 tablet (0.5MG) by oral route 2 times every day as needed 0.5 MG - Active avoid driving or operate machines Procedures Procedure Date OFFICE/OUTPATIENT VISIT, EST OFFICE/OUTPATIENT VISIT, EST OFFICE/OUTPATIENT VISIT, EST OFFICE/OUTPATIENT VISIT, EST PREV VISIT, NEW, AGE 18-39 OFFICE/OUTPATIENT VISIT, NEW Advance Directives Directive Yes / No Effective Date File Name No Information Encounters Encounter Description Practice Location Reason(s) For Visit Diagnoses Date Provider Providers Copied on Encounter [facility], [address] [place], [id number], [place] tel:[phone] [facility] No Information 0 4 Deepak Rojas. [address] [facility] [place], [address] , [place]. tel:[phone] Referring Provider: Bob Sotelo, [address] [address] [facility] [place], [address]. tel:[phone] OFFICE/OUTPA TIENT VISIT, [facility], [place], [address], [place], [place], [address], [place] tel:[phone] [facility] anxiety (chief complaint) back pain (chief complaint) LumbagoGeneralized anxiety disorderDepression Apr-2 4 Deepak Rojas. [address], [place], [place], [address] , [place]. [phone] Referring Provider: Oz Garc[address], [place], [place], [address]. tel:[phone] OFFICE/OUTPA TIENT VISIT, [facility], [place], [address], [place], [place], [address], [place] tel:[phone] [facility] back pain (chief complaint) INsomnia (chief complaint) ADD (chief complaint) LumbagoInsomnia, OtherGeneralized anxiety disorderAttention deficit disorder of childhood without mention of hyperactivity Apr-0 4 Deepak Rojas. [address], [place], [place], [address] , [place]. [phone] Referring Provider: Oz Garc[address], [place], [place], [address]. tel:[phone] OFFICE/OUTPA TIENT VISIT, [facility], [place], [address], [place], [place], [address], [place] tel:[phone] [facility] shoulder pain (chief complaint) back pain (chief complaint) anxiety (chief complaint) Pain in joint involving shoulder regionLumbagoGenera lized anxiety disorder May- 4 Deepak Rojas. [address], [place], [place], [address] , [place]. [phone] Referring Provider: Oz Garc[address], [place], [place], [address]. tel:[phone] OFFICE/OUTPA TIENT VISIT, [facility], [place], [address], [place], [place], [address], [place] tel:[phone] [facility] eye (chief complaint) back pain (chief complaint) anxiety (chief complaint) LumbagoAcute conjunctivitis, unspecifiedInsomnia , OtherGeneralized anxiety disorder 4 Deepak Rojas. [address], [place], [place], [address] , . [phone] Referring Provider: Bob Sotelo, [address], [place], [place], [address]. tel:[phone] PREV VISIT, NEW, AGE 18-39 [facility], [address], [place], [place], [address], [place] tel:[phone] [facility] Physical (chief complaint) Routine Medical ExamLumbagoGenerali zed anxiety disorderPain in joint involving ankle and footRoutine Medical Exam 4 Deepak Rojas. [address], [place], [place], [address] , [place]. [phone] Family History Family Member Type Diagnosis Age At Onset Father Problem (finding) Hypertension Mother Problem (finding) Alive and well Father Problem (finding) Diabetes mellitus Sister Problem (finding) Alive and well Payers Payer name Insurance type Covered libertarian ID Authoriza tion(s) No Information Social History Type Description Quantity Date Captured Comments Sex Female Smoking Status No Information Chief Complaint And Reason For Visit No Information Plan Of Treatment Date Type Action Status Goal Tobacco cessation counseling completed Goal Tobacco cessation counseling completed Goal Tobacco cessation counseling completed Goal Tobacco cessation counseling completed Referral Ordered: LUMBAR XRAY AP AND LAT ONLY ordered Referral Ordered: Physical Therapy (related to Lumbago) ordered Referral Ordered: SHOULDER XRAY 2+ VIEWS ordered Referral Referred To: Physical Therapy Ordered: Referral: Physical Therapy. ordered History Of Present Illness Encounter Date Complaint History Of Prese nt Illness No Information Instructions Date Instruction Additional Infor mation No Information Assessments Type Assessment Date No Information
--- OUTSIDE RECORDS SUMMARY | 2024-05-14 11:56 | XMS_ITS | Continuity of Care Document ---
Author Organization [facility] Address [address] [place] [address] [place] [address] Phone Care Team Providers Care Radiology Assistant Name Role Phone Bob Sotelo MD Unavailable Unavailable Allergies, Adverse Reactions, Alerts Substance Reaction Status Criticality PROCHLORPERAZINE MALEATE Active No Information PROCHLORPERAZINE EDISYLATE Active N o Information Medications Medication Instructions Dosage Effective Dates (start - stop) Status Comments Xanax 0.5 mg tablet take 1 tablet (0.5MG) by oral route 2 times every day as needed 0.5 MG - Active avoid driving or operate machines Prozac 20 mg capsule take 1 Capsule (20MG) by oral route every day in the morning 20 MG - Active Procedures Procedure Date OFFICE/OUTPATIENT VISIT, EST OFFICE/OUTPATIENT VISIT, EST OFFICE/OUTPATIENT VISIT, EST OFFICE/OUTPATIENT VISIT, EST PREV VISIT, NEW, AGE 18-39 OFFICE/OUTPATIENT VISIT, NEW Advance Directives Directive Yes / No Effective Date File Name No Information Encounters Encounter Description Practice Location Reason(s) For Visit Diagnoses Date Provider Providers Copied on Encounter [facility], [place], [facility], [address] [place], [address], [place] tel:[phone] [facility], [place] No Information 0 4 Deepak Rojas. [address] [facility] [place], [address] , [place]. tel:[phone] Referring Provider: Bob Sotelo, [address] [facility] [place], [address]. tel:[phone] OFFICE/OUTPA TIENT VISIT, [facility], [address], [place], [place], [address], [place] tel:[phone] [facility], [place], [facility] anxiety (chief complaint) back pain (chief complaint) LumbagoGeneralized anxiety disorderDepression Apr-2 4 Deepak oRjas. [address], [place], [place], [address] , [place]. [phone] Referring Provider: Oz Garc[address], [place], [place], [address]. tel:[phone] OFFICE/OUTPA TIENT VISIT, [facility], [address], [place], [place], [address], [place] tel:[phone] [facility], [place] back pain (chief complaint) INsomnia (chief complaint) ADD (chief complaint) LumbagoInsomnia, OtherGeneralized anxiety disorderAttention deficit disorder of childhood without mention of hyperactivity Apr-0 4 Deepak Rojas. [address], [place], [place], [address] , [place]. [phone] Referring Provider: Oz Garc[address], [place], [place], [address]. tel:[phone] OFFICE/OUTPA TIENT VISIT, [facility], [address], [place], [place], [address], [place] tel:[phone] [facility] [place] shoulder pain (chief complaint) back pain (chief complaint) anxiety (chief complaint) Pain in joint involving shoulder regionLumbagoGenera lized anxiety disorder May- 4 Deepak Rojas. [address], [place], [place], [address] , [place]. [phone] Referring Provider: Oz Garc[address], [place], [place], [address]. tel:[phone] OFFICE/OUTPA TIENT VISIT, [facility], [address], [place], [place], [address], [place] tel:[phone] [facility] [place] eye (chief complaint) back pain (chief complaint) anxiety (chief complaint) LumbagoAcute conjunctivitis, unspecifiedInsomnia , OtherGeneralized anxiety disorder 4 Deepak Rojas. [address], [place], [place], [address] , . [phone] Referring Provider: Bob Sotelo, [address], [place], [place], [address]. tel:[phone] PREV VISIT, NEW, AGE 18-39 [facility], [place], [facility], [address], [place], [place], [address], [place] tel:[phone] [facility], [place] Physical (chief complaint) Routine Medical ExamLumbagoGenerali zed anxiety disorderPain in joint involving ankle and footRoutine Medical Exam 4 Deepak Rojas. [address], [place], [place], [address] , [place]. [phone] Family History Family Member Type Diagnosis Age At Onset Father Problem (finding) Hypertension Mother Problem (finding) Alive and well Father Problem (finding) Diabetes mellitus Sister Problem (finding) Alive and well Payers Payer name Insurance type Covered democrat ID Authoriza tion(s) No Information Social History [...]
[2024-05-14 11:58] VITALS: BP 122/69; PULSE 86; RESP 18; TEMP 36.7; O2SAT 100
--- NOTE | 2024-05-14 12:45 | ED.NAVMDI ---
HPI - Nausea/Vomiting/Diarrhea General Chief complaint: Nausea/Vomiting/Diarrhea Stated complaint: Disarrhea/Stomach Pain/Nausea Time Seen by Provider: 05/14/24 12:45 Source: patient and RN notes reviewed Mode of arrival: ambulatory Limitations: no limitations History of Present Illness HPI Narrative: 48-year-old female presented for complaint of nausea, vomiting, diarrhea. Onset 5 days. She states symptoms are improving but needs a note for work. Denies abdominal pain, hematochezia, melena, hematemesis, fever chills. Taking Imodium. Patient was felt to tolerate dinner last night. Related Data Allergies Allergy/AdvReac Type Severity Reaction Status Date / Time prochlorperazine Allergy Unknown Cramping Verified 05/14/24 12:00 of the Muscles Review of Systems Review of Systems: CONSTITUTIONAL: Denies body aches, fever, chills ENT: Denies rhinorrhea, congestion CARDIOVASCULAR: Denies chest pain, palpitations, or edema. RESPIRATORY: Denies cough or dyspnea. GASTROINTESTINAL: Endorses nausea, vomiting, diarrhea. Denies hematochezia, melena, hematemesis GENITOURINARY: Denies dysuria, hematuria, or CVA tenderness. SKIN: Denies rash, itching, or wounds. MUSCULOSKELETAL: Denies back pain, joint pain, or myalgia. NEUROLOGIC: Denies headache, numbness, tingling, or weakness. All systems reviewed & are unremarkable except as noted in HPI and below PMFSH Past Medical History Medical History Abscess Depression Anxiety Surgical History Surgical History Hx of appendectomy Previous section H/O Spinal surgery History of orthopedic surgery Family History Family History Father Family history of diabetes mellitus in first degree relative Grandparent Family history of malignant neoplasm of cervix Family history of primary malignant neoplasm of liver Family history of heart disease in male family member before age 55 Social History Social History Smoking packs per day: 1 Smoking cigarettes per day: 20.0 Years smoked: 30 Smoking pack-years: 30.00 Smoking status: Current every day smoker Tobacco type: e-cigarettes/vaping Additional smoking assessment comments: quit cigatette smoking 2 years ago now vapes Alcohol intake: never Substance use type: does not use Gender identity (if verbalized by the patient): Female Spiritual care concerns: No Comments At time of signature, I have reviewed and agree with nursing past medical, surgical, social and family history unless otherwise noted. Please see nursing chart for further information. There is no relevant family history pertinent to the presenting complaint Exam Narrative: GENERAL: Well-appearing, and in no acute distress. EYES: EOMI. Conjunctivae normal. ENT: Mucous membranes pink and moist. CHEST: No respiratory distress. Clear to auscultation. HEART: Regular rate and rhythm. No murmur appreciated. Normal peripheral pulses. ABDOMEN: abd soft, nondistended, normal active bowel sounds. Nontender abdomen; No guarding, rebound tenderness, asymmetry EXTREMITIES: Normal range of motion. No edema. SKIN: Warm, dry, no rash. Capillary refill normal. Normal skin turgor. NEURO: No focal deficits. Alert and oriented x3. PSYCH: Normal affect. Course Course Emergency Course: Patient is aware of diagnosis, understands and agrees to treatment plan. Anticipatory guidance given. Patient agrees to follow-up as directed and is aware of reasons to seek care at the emergency department. Portions of this record may have been created with voice recognition software Level of Care: Express Care Visit Vital Signs Vital signs: Vital Signs Temperature 98.0 F 05/14/24 11:58 Pulse Rate 86 05/14/24 11:58 Respiratory Rate 18 05/14/24 11:58 Blood Pressure 122/69 05/14/24 11:58 Pulse Oximetry 100 05/14/24 11:58 Oxygen Delivery Room Air 05/14/24 11:58 Temperature 98.0 F 05/14/24 11:58 Pulse Rate 86 05/14/24 11:58 Respiratory Rate 18 05/14/24 11:58 Blood Pressure 122/69 05/14/24 11:58 Pulse Oximetry 100 05/14/24 11:58 Oxygen Delivery Room Air 05/14/24 11:58 MDM - Nausea/Vomiting/Diarrhea MDM Narrative Medical decision making narrative: Discussed physical exam findings c/w gastroenteritis. Pt says sx are improving, vss. Advised supportive measures and signs/symptoms to go to the ER. Pt is appropriate for outpt treatment and f/u. Differential Diagnosis Differential diagnosis: Likely traveler's diarrhea, food poisoning, gastroenteritis, clostridium difficile infection, drug-induced nausea and vomiting and dehydration Discharge Plan Discharge Clinical Impression: Gastroenteritis Patient Disposition: Home, Self-Care Condition: Stable Instructions: Antibiotic Form, Gastroenteritis (ED) Additional Instructions: Stay hydrated. Take small sips of fluid containing electrolytes frequently. Clear liquids (broth, jello, tea, sprite, pedialyte) [place] foods (bananas, rice, applesauce, toast, crackers) Avoid fatty, greasy, fried or spicy foods. Limit dairy until symptoms are improved. [id number] Imodium according to package directions Recommend probiotic such as align or lactobacillus to help with symptoms. You should go to the hospital if you experience persistent nausea and vomiting that does not resolve and does not allow you to tolerate any food or fluids, fevers, increasing abdominal pain, persistent diarrhea, dizziness, fainting, or for any other concerns. Follow up with primary care provider in 3 days. Patient Language: Greenlandic Prescriptions: New ondansetron 4 mg tablet,disintegrating 4 mg PO Q8H PRN (Reason: nausea and vomiting) Qty: 10 0RF No Action amoxicillin 875 mg tablet 875 mg PO Q12H Qty: 20 0RF Rx Instructions: take all of antibiotics fluticasone propionate [Flonase Allergy Relief] 50 mcg/actuation spray,suspension 2 spray intranasal DAILY Qty: 16 0RF Rx Instructions: administer into each nostril Follow-up/Referrals: PHYSICIAN,MINE ENGINEERING MANAGER [Primary Care Provider] - Stand Alone Forms: Work/School Release IP
== END 2024-05-14 12:57 | disposition home or self-care (01) ==
PROVIDERS: Emergency Provider Nurse Practitioner Family
DX: K52.9 Noninfective gastroenteritis and colitis, unspecified (principal); F17.290 Nicotine dependence, other tobacco product, uncomplicated
CPT/HCPCS: 99213; G0463

== ENCOUNTER 2024-07-28 13:37 | Emergency (ER) | payer OTHER, SELFPAY ==
[2024-07-28 13:50] VITALS: BP 125/66; PULSE 82; RESP 18; TEMP 36.4; O2SAT 98
--- NOTE | 2024-07-28 14:11 | ED_ITS ---
HPI - URI/Sore Throat General Chief Complaint: Upper Respiratory Infection Stated Complaint: Nasal Congestion/Dizziness History of Present Illness HPI Narrative: patient is a 49-year-old female without significant past medical history, presents to [facility] with 6 day history of URI symptoms, including nasal congestion, slightly sore throat that has since resolved and a dry cough. she has not had a fever. She has known exposure to RSV and presents today with concern she may need screening for RSV. She does report that her symptoms are starting to improve and she is feeling better overall. She denies chest pain shortness of breath, abdominal pain, nausea vomiting or diarrhea. She has no dysuria. She is taking mewd-iub-hevptyj cold medications with adequate symptom relief Related Data Home Medications ?Medication ?Instructions ?Recorded ?Confirmed ?Last Taken ?Type No Home Medications 07/28/24 07/28/24 Unknown History Allergies Allergy/AdvReac Type Severity Reaction Status Date / Time prochlorperazine Allergy Unknown Cramping Verified 07/28/24 13:54 of the Muscles Review of Systems ENT: Comments: for HPI PMFSH Past Medical History Medical History Abscess Depression Anxiety Surgical History Surgical History Hx of appendectomy Previous section H/O Spinal surgery History of orthopedic surgery Family History Family History Father Family history of diabetes mellitus in first degree relative Grandparent Family history of malignant neoplasm of cervix Family history of primary malignant neoplasm of liver Family history of heart disease in male family member before age 55 Social History Social History Smoking packs per day: 1 Smoking cigarettes per day: 20.0 Years smoked: 30 Smoking pack-years: 30.00 Smoking status: Current every day smoker Tobacco type: e-cigarettes/vaping Additional smoking assessment comments: quit cigatette smoking 2 years ago now vapes Alcohol intake: never Substance use type: does not use Gender identity (if verbalized by the patient): Female Spiritual care concerns: No Exam Const: General: healthy appearing Nutritional Appearance: well nourished Orientation/consciousness: patient oriented x3 Limitations: no limitations HENMT: Head: normal to inspection Ears: external ears normal and TM's normal bilaterally Face/Nose/Sinus: Normal external nose present and Nasal discharge present clear Face and sinus: normal facial exam and sinuses nontender Mouth: Yes Normal oral and palatal mucosa present and Yes lip normal Throat: posterior oropharynx normal and uvula midline Eyes: Conjunctivae: conjunctivae normal Pupils: Equal, round and reactive pupils present EOM: EOMs intact bilaterally Direct Ophthalmoscopy: no photophobia Neck: Neck: normal visual inspection, no lymphadenopathy and no meningeal signs Chest: Chest palpation & inspection: normal inspection of the chest Resp: Effort & Inspection: normal respiratory effort Auscultation: clear to auscultation bilaterally Cardio: Rate: regular rate Rhythm: regular rhythm GI: GI Palp: Yes Soft to palpation Skin: General skin exam: normal color Rashes: no rashes Wounds: no wounds Neuro: General: patient oriented x3, moves all extremities, no meningeal signs, no focal motor deficits and CN's II-XI intact bilaterally Gait exam (Neuro): Normal gait present Extrem: General: normal to inspection Psych: Mental Status: mental status grossly normal Affect: normal affect Attitude: cooperative Course Course Emergency Course: Patient advised are screenings for her see here recommended for age children ages 6 and under. Treatment however symptomatic /supportive otherwise and screenings are not routinely done patients without opportunistic concerns. She is encouraged to push fluids, to rest, to take gbfs-iwu-nbbldnc Zyrtec or Claritin, to use Flonase and Delsym. Follow-up closely with her PCP if she develops fevers or if her symptoms are not continuing to resolve over the course the next few days. Patient is agreeable with plan Level of Care: Express Care Visit (01595) Vital Signs Vital signs: Vital Signs Temperature 36.4 C 07/28/24 13:50 Pulse Rate 82 07/28/24 13:50 Respiratory Rate 18 07/28/24 13:50 Blood Pressure 125/66 07/28/24 13:50 Pulse Oximetry 98 07/28/24 13:50 Oxygen Delivery Room Air 07/28/24 13:50 Temperature 36.4 C 07/28/24 13:50 Pulse Rate 82 07/28/24 13:50 Respiratory Rate 18 07/28/24 13:50 Blood Pressure 125/66 07/28/24 13:50 Pulse Oximetry 98 07/28/24 13:50 Oxygen Delivery Room Air 07/28/24 13:50 MDM - URI/Sore Throat MDM Narrative Medical decision making narrative: RSV possible versus viral URI of other etiology. Treatment is supportive. Differential Diagnosis Differential diagnosis: Likely upper respiratory infection, otitis media, viral infection, influenza and other ( RSV) Discharge Plan Discharge Clinical Impression: Upper respiratory infection, viral Patient Disposition: Home Condition: Stable Instructions: Antibiotic Form, Upper Respiratory Infection (ED) Additional Instructions: PUSH FLUIDS, REST, TAKE [id number] ZYRTEC, FLONASE AND DELSYM DIRECTED FOR SYMPTOM RELIEF. SEE YOUR PRIMARY CARE PROVIDER IF SYMPTOMS ARE NOT FULLY RESOLVED IN 3-5 DAYS, SOONER IF CONDITION WORSENS IN ANY WAY Patient Language: Hungarian Prescriptions: No Action No Home Medications Follow-up/Referrals: PHYSICIAN,RIG HAND [Primary Care Provider] - Stand Alone Forms: Work/School Release IP Time of Disposition: 14:16
--- OUTSIDE RECORDS SUMMARY | 2024-07-28 15:28 | XMS_ITS | Clinical Summary ---
Author Organization [facility] Address [address] [place] [address] Care Team Providers Care Social Security Specialist Name Role Phone Sisi Magallon RN Unavailable UnavailMarley Millan RN Unavailable Unavailab Nayely Rodriguez WEB DESIGN INSTRUCTOR Primary Care Provider [phone] Opal Montanez Unavailable Unavailable Allergies Active Allergy [...] on file Legal Sex Female 11:49 PM SENIOR SUPPORT ANALYST Gender Identity Not on file Sexual Orientation [...] Diagnosis Comments EGFR STAT 04/06/2023 10:52 AM SENIOR SUPPORT ANALYST from Last 3 Months or Most Recently Relevant to Health Maintenance Results * eGFR (04/06/2023 10:52 AM SENIOR SUPPORT ANALYST) eGFR 98 mL/min/1. 73 m2 GONZALEZ GARCIA [...] reviewed 2021. Blood 04/06/2023 10:5 2 AM SENIOR SUPPORT ANALYST 04/06/2023 10:55 AM SENIOR SUPPORT ANALYST us Milind Ross MD LAB BLOOD ORDERABLE S Final Result [facility] 1 [facility] Department of Laboratories [place] [id number] from Last 3 Months or Most Recently Relevant to Health Maintenance Insurance [facility] IDPA [employer] [facility] Care Teams Social Security Specialist Relationship Specialty Start Date End Date Nayely Earl NP PCP - General 06/13/19 Sisi Magallon, RN Registered Nurse 03/19/17 Marley Simon, MICHELE Registered Nurse Pain Management 12/30/17 Opal Montanez Culinary Arts Instructor Addiction Medicine 03/29/20
--- OUTSIDE RECORDS SUMMARY | 2024-07-28 15:28 | XMS_ITS | Clinical Summary ---
Author Organization [facility] Address [address] [place] [address] Phone Care Team Providers Care Insecticide Supervisor Name Role Phone Unavailable Primary Care Provider [...] Lnp-s, Pf, 3 0 Mcg/0.3 Ml Dose ([place]) 09/25/2020 Influenza Vaccine, Quadrivalent, PF 01/06/2020,1 ,12/13/2016 [...] Comments Blood Pressure 120/78 05/03/2020 4:41 PM HAND I CUTTER Pulse 73 05/03/2020 4:41 PM HAND I CUTTER Temperature 36.7 C (98 F) 05/03/2020 4:41 PM HAND I CUTTER Respiratory Rate 20 04/26/2020 4:33 PM HAND I CUTTER Oxygen Saturation 98% 05/03/2020 4:41 PM HAND I CUTTER Inhaled Oxygen Concentration - - Weight 65.8 kg (145 lb) 04/26/2020 4:33 PM HAND I CUTTER Height 165.1 cm (5' 5 ) 03/09/2020 9:28 AM HAND I CUTTER Body Mass Index 24.13 03/09/2020 9:28 AM HAND I CUTTER Plan of Treatment Health Maintenance Due Date Last Done Comments Hepatitis C Virus (HCV) Screening 1973 Hepatitis B Immunization (1 of 3 - 19+ 3-dose series) 1992 Pap Smear 1994 Cervical Cancer Screening (CCS) 2003 HPV/Cotest 2003 Colonoscopy 2018 Colorectal Cancer Screening 2018 Mammogram 07/19/2018 07/19/2017 Cologuard 2023 Immunochemical Fecal Occult Blood 2023 Pneumococcal Immunization (5 0+ years) (2 of 2 - PCV) 2023 12/13/2016 Zoster Immunization (1 of 2) 2023 Influenza Immunization (#1) 12/08/202312/09, 01/27/2018, 12/13/2016 SARS-COV-2 Immunization ( - 2023- season) 2023 09/25/2020, 08/26/2020 Td Immunization Every [...] exam. Electronically signed by: Katt hatch/brenda:07/22/2017 09:28:07 Health And Safety Trainer: Emerald BENTLEY)(M), [facility] letter sent: Normal Exam Reading location: [facility] BI-RADS: 1 Negative Procedure Note Katt Swain [...] exam. Electronically signed by: Katt hatch/brenda:07/22/2017 09:28:07 Health And Safety Trainer: Emerald ALVAREZ(R)(M), [facility] letter sent: Normal Exam Reading location: [facility] BI-RADS: 1 Negative Dwayne Feliciano MD IMG MAMMO ORDERABLES Final Result from Last 3 Months or Most Recently Relevant to Health Maintenance Insurance [place]ICAID [place]
--- OUTSIDE RECORDS SUMMARY | 2024-07-28 15:28 | XMS_ITS | Referral Summary ---
Author Organization [facility] Address [address] [place] [address] Care Team Providers Care Manufacturing Lab Technician Name Role Phone Sisi Magallon RN Unavailable UnavailMarley Millan RN Unavailable Unavailab Nayely Rodriguez NP Primary Care Provider [phone] Opal Montanez Unavailable Unavailable Allergies Active Allergy [...] on file Legal Sex Female 11:49 PM CRTTS Gender Identity Not on file Sexual Orientation [...] Diagnosis Comments EGFR STAT 04/06/2023 10:52 AM CRTTS from Last 3 Months or Most Recently Relevant to Health Maintenance Results * eGFR (04/06/2023 10:52 AM CRTTS) eGFR 98 mL/min/1. 73 m2 [facility] JOSE ([place]) Comment: Interpretive Data Reference Interval Normal >/= [...] reviewed 2021. Blood 04/06/2023 10:5 2 AM CRTTS 04/06/2023 10:55 AM CRTTS us Milind Ross MD LAB BLOOD ORDERABLE S Final Result [facility] ([place]) 1 [facility] Department [place] [address] from Last 3 Months or Most Recently Relevant to Health Maintenance Insurance [facility] [employer] [facility] Care Teams Manufacturing Lab Technician Relationship Specialty Start Date End Date Nayeyl Earl NP PCP - General 06/13/19 Sisi Magallon, RN Registered Nurse 03/19/17 Marley Simon, MICHELE Registered Nurse Pain Management 12/30/17 Opal Montanez Visual Merchandise Manager Addiction Medicine 03/29/20
--- OUTSIDE RECORDS SUMMARY | 2024-07-28 15:28 | XMS_ITS | Clinical Summary ---
Author Organization [facility] Address [address] [place] [address] Care Team Providers Care Auto Overhauler Name Role Phone Unavailable Primary Care Provider Unavailabl e Source Comments [facility],non-owned Affiliates and Associated Physician Practices is amultiple site organization consisting of ambulatory clinics and hospital sitesin [place], [place], [place] and [place]. This disclosure is being madepursuant to the Care Everywhere program and may not contain all information available regarding this patient. Last updated 17.[facility] Allergies Active Allergy Reactions Criticality Noted Date Comments Prochlorperazine Myalgias 06/05/2016 Whole body contractions Medications * Be aware that medications may not be up to date on this document. Alwaysverify current medications with the patient. FLUoxetine (PROZAC) 20 MG capsule Take 20 mg by mouth once daily Active HYDROcodone-acet aminophen (NORCO) 5-325 MG tablet Take 1 Tab by mouth every 4 hours as needed for Pain 30 Tab 06/05/2016 Active oxyCODONE-acetam inophen (PERCOCET) 5-325 MG tablet Take 1 Tab [...] drink = 0.6 oz pur e alcohol) Comments No Sex and Gender Information Value Date Recorded Sex Assigned at Not on file Legal Sex Female 12:44 PM INVESTIGATOR OPERATOR Gender Identity Not on file Sexual Orientation Not on file Last Filed Vital Signs Vital Sign Reading Time Taken Comments Blood Pressure 118/72 06/05/2016 12:06 PM INVESTIGATOR OPERATOR Pulse 51 06/05/2016 12:06 PM INVESTIGATOR OPERATOR Temperature 36.7 C (98 F) 06/05/2016 12:06 PM INVESTIGATOR OPERATOR Respiratory Rate 14 06/05/2016 12:06 PM INVESTIGATOR OPERATOR Oxygen Saturation 98% 06/05/2016 12:06 PM INVESTIGATOR OPERATOR Inhaled Oxygen Concentration - - Weight 63.2 kg (139 lb 6.4 oz) 06/05/2016 8:11 A M INVESTIGATOR OPERATOR Height 165.1 cm (5' 5 ) 06/05/2016 8:11 AM INVESTIGATOR OPERATOR Body Mass Index 23.2 06/05/2016 8:11 AM INVESTIGATOR OPERATOR Plan of Treatment Health Maintenance Due Date Last Done Comments COLOGUARD (AGES 45-75) - COL ON CA SCREENING 1973 COLON MONITORING 1973 COLONOSCOPY - COLON CA SCREENING 1973 CT COLONOGRAPHY - COLON CA SCREENING 1973 Colorectal Cancer Screening 1973 FIT - COLON CA SCREENING 1973 FLEX SIG - COLON CA SCREENING 1973 LIPID TESTING 1973 MAMMOGRAM 1973 HIV SCREENING 1988 HEPATITIS C SCREENING 05/18/1991 DTAP/TDAP/TD VACCINES (1 - Tdap) 1992 HEPATITIS B VACCINE (1 of 3 - 19+ 3-dose series) 1992 PNEUMOCOCCAL VACCINE 50+ (1 of 2 - PCV) 1992 ZOSTER VACCINE (1 of 2) 2023 COVID-19 VACCINE (1 - 2023-2 5 season) 2023 DEPRESSION SCREENING 04/08/2024 INFLUENZA VACCINE (Season Ended) 2024 HIB VACCINE Aged Out No longer eligi ble based on patient's age to complete this topic HPV VACCINE Aged Out No longer eligi ble based on patient's age to complete this topic MENINGOCOCCAL (Group B) VACC INE SHARED DECISION-MAKING Aged Out No longer eligibl e based on patient's age to complete this topic MENINGOCOCCAL GROUPS A/C/Y/W VACCINE Aged Out No longer eligible b ased on patient's age to complete this topic Insurance [employer]
--- OUTSIDE RECORDS SUMMARY | 2024-07-28 15:28 | XMS_ITS | Clinical Summary ---
Author Organization [facility] Address [address] [place] [address] Care Team Providers Care Printing Plate Clerk Name Role Phone Ken Llamas MD Primary Care Provider [phone] Allergies Active Allergy Reactions Criticality Noted Date [...] on file Legal Sex Female 8:38 AM HAND BRUSH FILLER Gender Identity Not on file Sexual Orientation Not on file Last Filed Vital Signs Vital Sign Reading Time Taken Comments Blood Pressure 129/81 04/19/2019 10:19 AM HAND BRUSH FILLER Pulse 99 04/19/2019 10:19 AM HAND BRUSH FILLER Temperature 36.7 C (98.1 F) 04/19/2019 8:51 AM HAND BRUSH FILLER Respiratory Rate 18 04/19/2019 10:19 AM HAND BRUSH FILLER Oxygen Saturation 99% 04/19/2019 10:19 AM HAND BRUSH FILLER Inhaled Oxygen Concentration - - Weight 63.5 kg (140 lb) 04/19/2019 8:51 AM HAND BRUSH FILLER Height 165.1 cm (5' 5 ) 04/19/2019 8:51 AM HAND BRUSH FILLER Body Mass Index 23.3 04/19/2019 8:51 AM HAND BRUSH FILLER Plan of Treatment Health Maintenance Due Date Last Done Comments Cervical Cancer Screening Pa p Smear (Age 30 to 64) Every 3 Years 1973 Colorectal Cancer Screening Colonoscopy (10 Years) 1973 Annual Physical 1976 Hepatitis C 1991 DTaP, Tdap and Td Vaccines ( 1 - Tdap) 1992 Hepatitis B Vaccines (1 of 3 - 19+ 3-dose series) 1992 Pneumococcal Vaccine: 50+ Ye ars (1 of 2 - PCV) 1992 Cervical Cancer Screening Pa p with HPV Testing (Age 30 to 64) Every 5 Years 2003 Cervical Cancer Screening with HPV 2003 Mammogram Screening 2013 Zoster Vaccines (1 of 2) 2023 COVID-19 Vaccine (1 - 2023-2 5 season) 2023 Meningococcal B Vaccine Aged Out No l onger eligible based on patient's age to complete this topic Meningococcal Vaccine Aged Out No dustin nicole eligible based on patient's age to complete this topic RSV Immunizations Under 20 Months Aged Out No longer eligible based on patient's age to complete this topic Insurance Care Teams Printing Plate Clerk Relationship Specialty Start Date End Date Ken Llamas MD PCP - General INTERNAL MEDICINE 04/19/19
--- OUTSIDE RECORDS SUMMARY | 2024-07-28 15:28 | XMS_ITS | Continuity of Care Document ---
Author Organization [facility] Address [address] [place] [address] [place] [address] Phone Care Team Providers Care School Counselor Name Role Phone Bob Sotelo MD Unavailable [...] Diagnoses Date Provider Providers Copied on Encounter [facility] [place], [address], [place], [id number], [place] tel:[phone] [facility] [place] No Information 0 4 Deepak Rojas. [email or web address] [facility] [place] [place], [place], [address] , [place]. tel:[phone] Referring Provider: Bob Sotelo, [address], [address]. tel:[phone] OFFICE/OUTPA TIENT VISIT, [facility], [address], [place], [place], [address], [place] tel:[phone] [facility] [place] anxiety (chief complaint) back pain (chief complaint) LumbagoGeneralized anxiety disorderDepression Apr-2 4 Deepak Rojas. [address], [place], [place], [address] , [place]. [phone] Referring Provider: Oz [address], [place], [place], [address]. tel:[phone] OFFICE/OUTPA TIENT VISIT, [facility], [address], [place], [place], [address], [place] tel:[phone] [facility] [place] back pain (chief complaint) INsomnia (chief complaint) ADD (chief complaint) LumbagoInsomnia, OtherGeneralized anxiety disorderAttention deficit disorder of childhood without mention of hyperactivity Apr-0 4 Deepak Rojas. [address], [place], [place], [address] , [place]. [phone] Referring Provider: Oz [address], [place], [place], [address]. tel:[phone] OFFICE/OUTPA TIENT VISIT, [facility], [address], [place], [place], [address], [place] tel:[phone] [facility] [place] shoulder pain (chief complaint) back pain (chief complaint) anxiety (chief complaint) Pain in joint involving shoulder regionLumbagoGenera lized anxiety disorder May- 4 Deepak Rojas. [address], [place], [place], [address] , [place]. [phone] Referring Provider: Oz [address], [place], [place], [address]. tel:[phone] OFFICE/OUTPA TIENT VISIT, [facility], [address], [place], [place], [address], [place] tel:[phone] [facility] [place] eye (chief complaint) back pain (chief complaint) anxiety (chief complaint) LumbagoAcute conjunctivitis, unspecifiedInsomnia , OtherGeneralized anxiety disorder 4 Deepak Rojas. [address], [place], [place], [address] , . [phone] Referring Provider: Bob Sotelo, [address], [place], [place], [address]. tel:[phone] PREV VISIT, NEW, AGE 18-39 [facility] [place], [address], [place], [place], [address], [place] tel:[phone] [facility] [place] Physical (chief complaint) Routine Medical ExamLumbagoGenerali zed anxiety disorderPain in joint involving ankle and footRoutine Medical Exam 4 Deepak Rojas. [address], [place], [place], [address] , [place]. [phone] Family History Family Member Type Diagnosis Age [...]
--- OUTSIDE RECORDS SUMMARY | 2024-07-28 15:31 | XMS_ITS | Continuity of Care Document ---
Author Organization [facility] Address [address] [address] Phone Care Team Providers Care Quality Director Name Role Phone Bob Sotelo MD Unavailable [...] Diagnoses Date Provider Providers Copied on Encounter [facility], [address], [place], [address], [place] tel:[phone] [facility] No Information 0 4 Deepak Rojas. [address] [facility] [address], [place], [address] , [place]. tel:[phone] Referring Provider: Bob Sotelo, [address] [facility] [address], [address]. tel:[phone] OFFICE/OUTPA TIENT VISIT, [facility], [address], [place], [place], [address], [place] tel:[phone] [facility] anxiety (chief complaint) back pain (chief complaint) LumbagoGeneralized anxiety disorderDepression Apr-2 4 Deepak Rojas. [address], [place], [place], [address] , [place]. [phone] Referring Provider: Oz Garc[address], [place], [place], [address]. tel:[phone] OFFICE/OUTPA TIENT VISIT, [facility], [address], [place], [place], [address], [place] tel:[phone] [facility] back pain (chief complaint) INsomnia (chief complaint) ADD (chief complaint) LumbagoInsomnia, OtherGeneralized anxiety disorderAttention deficit disorder of childhood without mention of hyperactivity Apr-0 4 Deepak Rojas. [address], [place], [place], [address] , [place]. [phone] Referring Provider: Oz Garc[address], [place], [place], [address]. tel:[phone] OFFICE/OUTPA TIENT VISIT, [facility], [address], [place], [place], [address], [place] tel:[phone] [facility] shoulder pain (chief complaint) back pain (chief complaint) anxiety (chief complaint) Pain in joint involving shoulder regionLumbagoGenera lized anxiety disorder May- 4 Deepak Rojas. [address], [place], [place], [address] , [place]. [phone] Referring Provider: Oz García [address], [place], [place], [address]. tel:[phone] OFFICE/OUTPA TIENT VISIT, [facility], [address], [place], [place], [address], [place] tel:[phone] [facility] eye (chief complaint) back pain (chief complaint) anxiety (chief complaint) LumbagoAcute conjunctivitis, unspecifiedInsomnia , OtherGeneralized anxiety disorder 4 Deepak Rojas. [address], [place], [place], [address] , . [phone] Referring Provider: Bob Sotelo, [address], [place], [place], [address]. tel:[phone] PREV VISIT, NEW, AGE 18-39 [facility], [address], [place], [place], [address], [place] tel:[phone] [facility] Physical (chief complaint) Routine Medical ExamLumbagoGenerali zed anxiety disorderPain in joint involving ankle and footRoutine Medical Exam 4 Deepak Rojas. [address], [place], [place], [address] , [place]. [phone] Family History Family Member Type Diagnosis Age At Onset Father Problem (finding) Hypertension Mother Problem (finding) Alive and well Father Problem (finding) Diabetes mellitus Sister Problem (finding) Alive and well Payers Payer name Insurance type Covered republican ID Authoriza tion(s) No Information Social History [...]
== END 2024-07-28 14:21 | disposition home or self-care (01) ==
PROVIDERS: Emergency Provider Nurse Practitioner Family
DX: J06.9 Acute upper respiratory infection, unspecified (principal); F17.290 Nicotine dependence, other tobacco product, uncomplicated
CPT/HCPCS: 99211; G0463